=== PATIENT | female | born 2005 | race African-American/Black ===

== ENCOUNTER 2024-12-04 19:17 | Inpatient (IN) ==
--- NOTE | 2024-12-04 19:26 | ED Triage Note ---
Date of Service December 04, 2024 Provider in Triage Author: Wing Mcgee History of Present Illness This patient was briefly evaluated while in triage. An abbreviated physical exam was performed. This patient is a 19-year-old Female who presents to the ED for evaluation seen here earlier today for accidental Tylenol overdose-evaluated and discharged, no treatment chest pain started while she was here but getting worse now shortness of breath and abdominal pain Physical Exam GENERAL: NAD CARDIOVASCULAR: RRR RESPIRATORY: CTA ABDOMEN: BS x 4. Nontender to palpation. Initial orders for labs and / or imaging were placed and patient was placed in the waiting area until a bed is available. Please see further documentation for the full ED course.
[2024-12-04 19:50] LABS: Basophils # (auto) 0.02 K/uL (0.00-0.20); Basophils % (auto) 0.3 %; Hematocrit (blood only) 40.8 % (37.0-47.0); Hemoglobin 13.8 g/dl (12.0-16.0); Immature Granulocytes # (auto) 0.02 K/uL (0.01-0.20); Immature Granulocytes % (auto) 0.3 %; Lymphocytes # (auto) 0.62 K/uL (1.20-3.40); Lymphocytes % (auto) 10.4 %; Mean Corpuscular Hgb Conc 33.8 g/dL (32.0-36.0); Mean Corpuscular Volume 82.8 fL (80.0-100.0); Mean Platelet Volume 10.5 fL (9.4-12.4); Monocytes # (auto) 0.39 K/uL (0.11-0.59); Monocytes % (auto) 6.5 %; Neutrophils # (auto) 4.94 K/uL (1.40-6.50); Neutrophils % (auto) 82.5 %; Platelet Count 228 K/uL (130-400); RDW Coefficient of Variation 12.4 % (11.5-14.5); RDW Standard Deviation 37.5 fL (36.4-46.3); Red Blood Count 4.93 M/uL (4.20-5.40); White Blood Count 5.99 K/ul (4.8-10.8)
[2024-12-04 20:04] LABS: Alanine Aminotransferase 193 U/L (7-52); Albumin Globulin Ratio 1.6 (0.9-2); Albumin Level 4.5 gm/dl (3.4-5.0); Alkaline Phosphatase 67 U/L (34-104); Anion Gap 11 (3-11); Aspartate Aminotransferase 215 U/L (13-39); BUN Creatinine Ratio 13.9 (10-20); Bilirubin,Total 0.6 mg/dl (0.2-1.0); Blood Urea Nitrogen 11 mg/dl (6-23); Calcium 9.1 mg/dl (8.6-10.3); Carbon Dioxide 23 mmol/L (21-32); Chloride 102 mmol/L (98-107); Creatinine Clr Calc Pharmacy 99.1 ml/min; Globulin 2.9 gm/dl (2.5-4.0); Glucose 191 mg/dl (70-99(Fasting)); Lipase 48 U/L (11-82); Potassium 2.8 mmol/L (3.5-5.1); Sodium 136 mmol/L (136-145); Total Protein 7.4 gm/dl (6.0-8.3)
[2024-12-04 20:09] LABS: Pregnancy Test, Serum Negative (Negative)
[2024-12-04 20:11] LABS: Troponin I High Sensitivity < 2.3 pg/ml (0-14)
--- NOTE | 2024-12-04 20:47 | XRay Report ---
Exam(s): XR CXR 1 VIEW EXAM: XR Chest, 1 View CLINICAL HISTORY: Reason for exam: chest pain. TECHNIQUE: Frontal view of the chest. COMPARISON: No relevant prior studies available. FINDINGS: Lungs: Slightly prominent central interstitial markings suggest possible mild bronchitis. No focal consolidation is seen. Pleural space: Unremarkable. No pneumothorax. Heart: Unremarkable. No cardiomegaly. Mediastinum: Unremarkable. Normal mediastinal contour. Bones/joints: Unremarkable. No acute fracture. IMPRESSION: Slightly prominent central interstitial markings suggest possible mild bronchitis. No focal consolidation is seen. Electronically signed by: Chance Scott MD 12/04/24 20:46 PM
--- NOTE | 2024-12-04 21:06 | Emergency Department Note ---
Impression & Plan Acute cholecystitis, Unintentional Tylenol overdose, Chest pain, Abdominal pain ED Provider Note NAME: SATYA SMILEY AGE: 19 SEX: F : 2005 ARRIVES VIA: Walk-In INFORMANT: Patient ED PROVIDER(S): Parveen Martinez DO CHIEF COMPLAINT: Abdominal pain and chest pain HPI: Patient is a 19-year-old female who presents to the ER for abdominal pain and chest pain. She notes her symptoms initially started on Monday with dysuria, urgency, or frequency. She came in to be evaluated for the chills and she took 10 to 12 tablets of extra strength Tylenol. She was seen and evaluated and discussed with poison control. She notes that she took these around 11:00. She notes while she was here she started having belly pain and chest pain. She consequently came back because of that. No other exacerbating or remitting factors. She does have nausea but no vomiting. ADDITIONAL HISTORY OBTAINED: Per HPI Chronic Medical/Social Conditions Affecting Care: Per HPI PAST MEDICAL HISTORY:See Below PAST SURGICAL HISTORY:See Below FAMILY HISTORY:See Below SOCIAL HISTORY:See Below HOME MEDICATIONS:See Below ALLERGIES:See Below VITALS:See Below PHYSICAL EXAMINATION: GENERAL: Sitting up in bed, alert, well appearing, well nourished, no distress, non-toxic EYE EXAM: normal conjunctiva. OROPHARYNX: mucous membranes are moist NECK: supple, no nuchal rigidity, no adenopathy, non-tender CHEST: Reproducible anterior chest wall pain just right of sternum LUNGS: Clear to auscultation. Normal chest wall mechanics HEART: no murmurs, S1 normal and S2 normal ABDOMEN: abdomen soft, mild tenderness in the mid abdomen, normo-active bowel sounds, no masses, no rebound or guarding. UPPER EXTREMITIES: upper extremities are grossly normal. LOWER EXTREMITIES: No pitting edema. NEURO EXAM: Normal sensorium, cranial nerves II-XII grossly intact, normal speech, no gross weakness of arms, no gross weakness of legs. MEDICAL DECISION MAKING: Patient is a 19-year-old female who presents ER for the above-stated complaint. IV was established blood work was obtained. Labs showed no significant leukocytosis or anemia. INR unremarkable. D-dimer was negative. BMP with mild hypokalemia 2.8. This was repleted to the IV. LFTs were significant elevated at 200 and this has increased from the LFTs earlier today. Troponin negative. hCG negative. Acetaminophen at 50 and still elevated. Discussed with poison control and they agree with NAC. NAC protocol was started. CT abdomen pelvis was obtained and upon admission did show acute cholecystitis. Unclear at this point whether the transaminitis is secondary to cholecystitis versus Tylenol overdose. General surgery was consulted and patient was admitted to the hospital service. Did discuss with general surgery and they will see and evaluated and they recommended ultrasound and admission to the hospital service. IV Zosyn was ordered. Consults/Care Managements Discussions: Per MDM Triage Nursing notes reviewed. Limited review of prior medical records performed Vital Signs: reviewed and remarkable for no significant abnormalities Differential diagnosis: Cardiac ischemia, aortic dissection, pulmonary embolism, pneumothorax, pneumonia, pericarditis, myocarditis, esophageal rupture, GERD, cholecystitis, pancreatitis, musculoskeletal, as well as other pathologies. ER treatment provided: See below Diagnostics interpreted by me include EKG and cardiac monitoring as listed below: -Cardiac Monitoring: An order was placed for continuous cardiac monitoring. The monitor shows a rate of 60 with sinus rhythm. -ECG: none -Laboratory studies:Interpreted by me as stated above in MDM and shown below. Imaging studies: Xrays: As interpreted by me:none CTs show: CT abdomen pelvis per my preliminary interpretation shows no obvious bowel obstruction CT abdomen pelvis per radiology shows acute cholecystitis Procedures:none Critical Care: I have personally spent 35 minutes of critical care time in the direct management of this patient. This includes bedside care, interpretation of diagnostic studies, and testing, discussion with consultants, patient, and family members, and other required patient management activities. This 35 minutes is in excess of all separately billable procedures. Past Med/Surg History Problem List (Updated 12/05/24 @ 00:43 by Parveen Martinez DO) Acute cholecystitis (Acute) Abdominal pain (Acute) Chest pain (Acute) Unintentional Tylenol overdose (Acute) Social History Smoking Status: Never smoker Preferred Language: Kyrgyz Feels Safe at Home: Yes Allergies Allergies Allergy/AdvReac Type Severity Reaction Status Date / Time No Known Allergies Allergy Verified 12/04/24 14:49 Home Meds Home Medications Medication Instructions Recorded Confirmed No Known Home Medications 12/04/24 12/04/24 Results & Data (ED) Vital Signs Vital Signs - 24 hr 12/04/24 19:22 12/04/24 20:44 12/05/24 00:35 Temperature 36.3 C L Temperature Source Temporal Artery Scan Pulse Rate 75 71 62 Respiratory Rate 20 Respiratory Effort / Characteristics Non-Labored Spontaneous Respiratory Depth Normal Respiratory Pattern Regular Blood Pressure 121/80 Blood Pressure Mean 93 Blood Pressure Position Sitting Pulse Oximetry 99 Oxygen Delivery Method Room Air Sepsis Recent Fever Within 48 Hours No Sepsis New/Unexplained Change in Mental Status N/A Sepsis Action Taken by Nursing No Action Required Laboratory Data 12/04/24 19:39 12/04/24 19:39 Lab Results 12/04/24 Range/Units 19:39 WBC 5.99 (4.8-10.8) K/ul RBC 4.93 (4.20-5.40) M/uL Hgb 13.8 (12.0-16.0) g/dl Hct 40.8 (37.0-47.0) % MCV 82.8 (80.0-100.0) fL MCH 28.0 (25.0-34.0) pg MCHC 33.8 (32.0-36.0) g/dL RDW Std Deviation 37.5 (36.4-46.3) fL RDW Coeff of Debbie 12.4 (11.5-14.5) % Plt Count 228 (130-400) K/uL MPV 10.5 (9.4-12.4) fL Immature Gran % (Auto) 0.3 % Neut % (Auto) 82.5 % Lymph % (Auto) 10.4 % [place] % (Auto) 6.5 % Eos % (Auto) 0.0 % Baso % (Auto) 0.3 % Neut # (Auto) 4.94 (1.40-6.50) K/uL Lymph # (Auto) 0.62 L (1.20-3.40) K/uL [place] # (Auto) 0.39 (0.11-0.59) K/uL Eos # (Auto) 0.00 (0.00-0.50) K/uL Baso # (Auto) 0.02 (0.00-0.20) K/uL Immature Gran # (Auto) 0.02 (0.01-0.20) K/uL PT 12.0 (9.0-12.0) Seconds INR 1.1 (0.9-1.1) D-Dimer 400 (0-500) ug/L FEU Sodium 136 (136-145) mmol/L Potassium 2.8 L (3.5-5.1) mmol/L Chloride 102 (98-107) mmol/L Carbon Dioxide 23 (21-32) mmol/L Anion Gap 11 (3-11) BUN 11 (6-23) mg/dl Creatinine 0.79 (0.6-1.2) mg/dl Est Cr Clr Drug Dosing 99.1 ml/min eGFR 109.75 BUN/Creatinine Ratio 13.9 (10-20) Glucose 191 H (70-99(Fasting)) mg/dl Calcium 9.1 (8.6-10.3) mg/dl Total Bilirubin 0.6 (0.2-1.0) mg/dl AST 215 H (13-39) U/L ALT 193 H (7-52) U/L Alkaline Phosphatase 67 (34-104) U/L Troponin I High Sens < 2.3 (0-14) pg/ml Total Protein 7.4 (6.0-8.3) gm/dl Albumin 4.5 (3.4-5.0) gm/dl Globulin 2.9 (2.5-4.0) gm/dl Albumin/Globulin Ratio 1.6 (0.9-2) Lipase 48 (11-82) U/L HCG, Qual Negative (Negative) Acetaminophen 50 H (10-30) ug/ml Administered Medications Acetylcysteine 3,150 mg/ (Dextrose) 515.75 mls @ 125 mls/hr IV ONCE ONE; Protocol Stop: 12/05/24 02:15 Last Admin: 12/04/24 23:32 Dose: 125 mls/hr Documented By: AN Potassium Chloride (K Nick / Wtr) 10 meq in 100 mls @ 100 mls/hr IV Q1H NELLA Stop: 12/05/24 01:29 Last Admin: 12/04/24 23:32 Dose: 100 mls/hr Documented By: AN Discontinued Medications Acetylcysteine (Acetylcysteine Iv 21 Hr Regimen (>40kg)) 1 each IV NOW STA; Protocol Stop: 12/04/24 21:07 Last Admin: 12/04/24 21:52 Dose: Not Given Documented By: SNS Acetylcysteine 9,450 mg/ (Dextrose) 247.25 mls @ 200 mls/hr IV ONCE ONE; Protocol Stop: 12/04/24 22:20 Last Infusion: 12/04/24 23:56 Dose: Infused Documented By: Admin: 12/04/24 21:49 Dose: 200 mls/hr Documented By: SHIV Sodium Chloride (Nss) 1,000 mls @ 999 mls/hr IV .Q1H1M ONE Stop: 12/04/24 22:08 Last Infusion: 12/04/24 22:31 Dose: Infused Documented By: Admin: 12/04/24 21:28 Dose: 999 mls/hr Documented By: SHIV Ioversol (Optiray 320 100ml) 89 ml IV ONCE ONE Stop: 12/04/24 22:56 Last Admin: 12/04/24 22:55 Dose: 89 ml Documented By: ROBLES Ketorolac Tromethamine (Ketorolac Tromethamine 15 Mg/Ml Vial) 10 mg IV NOW ONE Stop: 12/04/24 21:00 Last Admin: 12/04/24 21:10 Dose: 10 mg Documented By: SHIV Miscellaneous (Stat Iv/Im) 1 each N/A NOW STA Stop: 12/04/24 21:07 Last Admin: 12/04/24 21:24 Dose: Not Given Documented By: SHIV Ondansetron HCl (Ondansetron Inj 2 Mg/Ml 2 Ml Vial) 4 mg IV NOW STA Stop: 12/04/24 21:09 Last Admin: 12/04/24 21:28 Dose: 4 mg Documented By: SHIV Imaging Data Radiologist's Impression: Chest X-Ray 12/04/24 19:26 Exam(s): XR CXR 1 VIEW EXAM: XR Chest, 1 View CLINICAL HISTORY: Reason for exam: chest pain. TECHNIQUE: Frontal view of the chest. COMPARISON: No relevant prior studies available. FINDINGS: Lungs: Slightly prominent central interstitial markings suggest possible mild bronchitis. No focal consolidation is seen. Pleural space: Unremarkable. No pneumothorax. Heart: Unremarkable. No cardiomegaly. Mediastinum: Unremarkable. Normal mediastinal contour. Bones/joints: Unremarkable. No acute fracture. IMPRESSION: Slightly prominent central interstitial markings suggest possible mild bronchitis. No focal consolidation is seen. Electronically signed by: Chance Scott MD 12/04/24 20:46 PM Abdomen/Pelvis CT 12/04/24 22:16 Exam(s): CT ABDOMEN + PELVIS With Contrast IV Amt: 89 cc opti 320 EXAM: CT Abdomen and Pelvis With Intravenous Contrast CLINICAL HISTORY: Reason for exam: abd pain. TECHNIQUE: Axial computed tomography images of the abdomen and pelvis with intravenous contrast. CTDI is 12.09 mGy and DLP is 573.08 mGy-cm. Automated exposure control was utilized for the study. A dose lowering technique was utilized adhering to the principles of ALARA. CONTRAST: Patient received 89 cc opti 320 of IV contrast COMPARISON: No relevant prior studies available. FINDINGS: Lung bases: Unremarkable. No mass. No consolidation. ABDOMEN: Liver: Unremarkable. No mass. Gallbladder and bile ducts: Periportal edema. Gallbladder wall thickening and pericholecystic fluid. . No ductal dilation. Pancreas: Unremarkable. No mass. No ductal dilation. Spleen: Unremarkable. No splenomegaly. Adrenals: Unremarkable. No mass. Kidneys and ureters: Unremarkable. No solid mass. No hydronephrosis. Both kidneys opacify with and excrete contrast in a normal symmetric fashion Stomach and bowel: Unremarkable. No obstruction. No mucosal thickening. PELVIS: Appendix: No findings to suggest acute appendicitis. Bladder: Unremarkable. No mass. Reproductive: 1.2 cm right ovarian cyst versus follicle. ABDOMEN and PELVIS: Intraperitoneal space: Trace free fluid within the dependent pelvis Bones/joints: No acute fracture. No dislocation. Soft tissues: Unremarkable. Vasculature: Unremarkable. No abdominal aortic aneurysm. Lymph nodes: Unremarkable. No enlarged lymph nodes. IMPRESSION: Findings consistent with acute cholecystitis. Clinical correlation recommended. Electronically signed by: Parveen Nelson MD 12/05/24 00:25 AM Discharge Plan Visit Data Chief Complaint: Chest Pain Stated Complaint: CHEST PAIN, ABD PAIN, SOB ED Provider: Parveen Martinez Discharge Problem: Acute cholecystitis, Unintentional Tylenol overdose, Chest pain, Abdominal pain Forms Stand Alone Forms: [employer] Prescriptions Prescriptions: No Action No Known Home Medications Referrals Referrals: [facility] [Primary Care Provider] - Discharge Problem: Unintentional Tylenol overdose Qualifiers: Encounter type: initial encounter Qualified Code(s): T39.1X1A - Poisoning by 4- Aminophenol derivatives, accidental (unintentional), initial encounter Chest pain Qualifiers: Chest pain type: unspecified Qualified Code(s): R07.9 - Chest pain, unspecified Abdominal pain Qualifiers: Abdominal location: unspecified location Qualified Code(s): R10.9 - Unspecified abdominal pain
[2024-12-04] MEDS: KETOROLAC TROMETHAMINE 15 MG/ML VIAL IV ONE (21:10)
[2024-12-04] MEDS: STAT IV/IM STA (21:24)
[2024-12-04] MEDS: ONDANSETRON INJ 2 MG/ML 2 ML VIAL IV STA (21:28)
[2024-12-04] MEDS: SODIUM CHLORIDE 0.9% 1,000 ML IV ONE (21:28)
[2024-12-04 21:46] LABS: INR 1.1 (0.9-1.1)
[2024-12-04] MEDS: AcetylCYSTEINE IV 21 HR REGIMEN (>40KG) IV STA (21:52)
[2024-12-04 22:13] LABS: D Dimer 400 ug/L FEU (0-500)
[2024-12-04] MEDS: OPTIRAY 320 100ml IV ONE (22:55)
[2024-12-04] MEDS: POTASSIUM CHLORIDE / WTR 10 MEQ/100 ML PLCT IV SCH (23:32)
--- NOTE | 2024-12-05 00:26 | CT Scan Report ---
Exam(s): CT ABDOMEN + PELVIS With Contrast IV Amt: 89 cc opti 320 EXAM: CT Abdomen and Pelvis With Intravenous Contrast CLINICAL HISTORY: Reason for exam: abd pain. TECHNIQUE: Axial computed tomography images of the abdomen and pelvis with intravenous contrast. CTDI is 12.09 mGy and DLP is 573.08 mGy-cm. Automated exposure control was utilized for the study. A dose lowering technique was utilized adhering to the principles of ALARA. CONTRAST: Patient received 89 cc opti 320 of IV contrast COMPARISON: No relevant prior studies available. FINDINGS: Lung bases: Unremarkable. No mass. No consolidation. ABDOMEN: Liver: Unremarkable. No mass. Gallbladder and bile ducts: Periportal edema. Gallbladder wall thickening and pericholecystic fluid. . No ductal dilation. Pancreas: Unremarkable. No mass. No ductal dilation. Spleen: Unremarkable. No splenomegaly. Adrenals: Unremarkable. No mass. Kidneys and ureters: Unremarkable. No solid mass. No hydronephrosis. Both kidneys opacify with and excrete contrast in a normal symmetric fashion Stomach and bowel: Unremarkable. No obstruction. No mucosal thickening. PELVIS: Appendix: No findings to suggest acute appendicitis. Bladder: Unremarkable. No mass. Reproductive: 1.2 cm right ovarian cyst versus follicle. ABDOMEN and PELVIS: Intraperitoneal space: Trace free fluid within the dependent pelvis Bones/joints: No acute fracture. No dislocation. Soft tissues: Unremarkable. Vasculature: Unremarkable. No abdominal aortic aneurysm. Lymph nodes: Unremarkable. No enlarged lymph nodes. IMPRESSION: Findings consistent with acute cholecystitis. Clinical correlation recommended. Electronically signed by: Parveen Nelson MD 12/05/24 00:25 AM
--- NOTE | 2024-12-05 00:42 | History & Physical Report ---
"Date of Service December 05, 2024 Assessment & Plan (1) Acute cholecystitis: (2) Unintentional Tylenol overdose: (3) Dyspepsia: (4) Acute bronchitis: (5) Asthma: (6) Costochondritis: Plan This is a 20-year-old female with past medical history of asthma who came to the ED due to abdominal pain and chest pain. Patient was ultimately admitted for management of unintentional Tylenol overdose and acute cholecystitis. Unintentional Tylenol overdose -Patient with very frequent use of Tylenol somewhere between 10 AM and 2 PM for management of her chest pain or abdominal pain -Denies having any thoughts of self-harm or suicidal ideation, and states that her overuse of the medication today was not on purpose -Tylenol level earlier today was 75 and repeat now was 50 -LFTs elevated at AST 215, ALT 193; PT/INR normal -ED spoke with poison control, recommended acetylcysteine as management -Repeat LFTs as part of a.m. labs to monitor trend, and then every 8 hours after that, as well as PT/INR and acetaminophen levels -Will avoid use of Tylenol during hospital admission, and instead use ibuprofen for management of possible fevers or pain Acute cholecystitis -Noted on CTAP done in he ED -Possible contributor to patient's abdominal pain and nausea -Unsure if patient's transaminitis is secondary to this versus due to Tylenol overdose versus both -Patient does not appear septic and VSS w/o fevers; CBC w/o leukocytosis -Will place on Zosyn and consult General Surgery. -Will order RUQ US to confirm if gallstones present -Monitor am labs Chest pain | Costochondritis -Patient with reproducible pain over her right-sided chest -EKG done in ED w/ NSR at 73 bpm and no ischemic changes; Troponin negative -Will manage with NSAIDs; could consider Voltaren gel or lidocaine patch if pain control suboptimal Bronchitis | history of asthma -Patient with hx of childhood asthma; has not needed to use inhaler regularly, however, whenever she gets URI she does end up needing an inhaler -CXR noting changes consistent with bronchitis but no PNA/consolidations -Possible contributor to chest discomfort? -Will order albuterol prn Dyspepsia/reflux -Pain with palpation of epigastric region -Will order pepcid prn UTI versus yeast infection versus HSV -Patient visited [facility] physician due to pain with urination, but patient clarifies pain is when urine touches her skin, not when urine is passing through the urethra Was evaluated and told she may have HSV since they saw lesions around vulva, as well as changes consistent with possible yeast infection -Possible her pain with urination is more related to possible HSV and yeast infection rather than true UTI, but will order U/A to fully r/o -Will order pyridium as well -Zosyn ordered as above for cholecystitis but can cover if UTI is real -Will hold off of Fluconazole 2/2 hypokalemia (being replaced in ED) and hold on acyclovir due to risk for GI side effects Dispo: Med/Tele Diet: NPO until Gen Surge evaluates Pain Control: ibuprofen VTE ppx: SCD and ambulation Code Status: FULL CODE History of Present Illness Chief Complaint: Abdominal pain, chest pain Primary Care Provider: [facility] Patient is a 19-year-old female with past medical history of asthma who came to the ED 2/2 concern of chest pain and abdominal pain. She was seen earlier today in the ED also for concern for tylenol overdose, however, after ED physician spoke with poison control who stated patient did not to be treated due to time frame and lab values at the time. As the day went on, patient began experiencing more and more chest pain and abdominal pain and therefore returned to ED due to concern this was related to tylenol overdose. Patient states she did not intent to overdose on tylenol, and that she was taking 2 tabs every 5 minutes until she reached 10-12 tabs due to chest pain and abdominal pain. Denies history of suicidal thoughts or thoughts of self harm. When asked to describe her chest armstrong, she states it is constant and could reach significant levels of intensity but cannot think of a particular trigger. Her abdominal pain is more marked on the epigastric and suprapubic region, but she states she can feel it more generalized at time. Associated sxs include nausea without vomiting, but no fevers/chills, weakness, bowel movement changes, or any other sxs. ED Course: Discussed with poison control and acetylcysteine started, 500 mL IVF given Labs/Imaging: CBC w/o leukocytosis and hgb of 13.8 and plt of 228. CMP w/ hypokalemia of 2.8 but no other significant electrolytes abnormalities and renal markers in good range. Bsg elevated at 191. LFTs elevated w/ AST of 215 (was 15 earlier today) and ALT of 193 (was 10 earlier today), alk phos normal. PT/INR normal. D-dimer normal. Lipase normal at 48. test negative. Acetaminophen level of 50 (was 75 earlier today). CXR showing bronchitis. CTAP showing possible acute cholecystitis. Medical History: [Reviewed] Medications: [Reviewed] Surgical History: [Reviewed] Family history: [Reviewed] Allergies: [Reviewed] Social History: [Reviewed] Code Status: FULL CODE Allergies Allergy/AdvReac Type Severity Reaction Status Date / Time No Known Allergies Allergy Verified 12/04/24 14:49 Home Medications Medication Instructions Recorded Confirmed Type No Known Home Medications 12/04/24 12/04/24 History Past Med/Surg History Problem List Cholecystitis Costochondritis Acute bronchitis Dyspepsia Acute cholecystitis (Acute) Abdominal pain (Acute) Chest pain (Acute) Unintentional Tylenol overdose (Acute) Medical History Asthma Social History Smoking Status: Never smoker Hx Alcohol Use: No Hx Substance Use: No Preferred Language: Turkmen Communication Ability: Effective Company Doctor Required: No Beliefs That Will Affect Care: None Current Living Situation: Alone Current Living Situation Comment: dorm Feels Safe at Home: Yes Assistive Devices: None Review of Systems Review of Systems: As per HPI Physical Exam Physical Exam: GENERAL: AAOx4, afebrile, non-toxic, NAD HEAD: AT, NC EYES: EOM intact, RODRIGO THROAT: normal to visual inspection CHEST: pain with palpation of right-sided chest wall, no pain w/ palpation of sternal region or left-sided chest wall; symmetric chest expansions with respirations CARDIO: RRR, no r/m/g PULMONARY: CTA b/l, normal respiratory effort, no respiratory distress GI: pain with palpation of epigastric region, nondistended EXTREMITIES: no swelling or calf tenderness in b/l LE Results & Data Results & Data Vital Signs (Past 12 Hours) Vital Signs Temp Pulse Resp BP Pulse Ox O2 Del Method 12/05/24 00:35 62 12/04/24 20:44 71 12/04/24 19:22 36.3 C L 75 20 121/80 99 Room Air Laboratory Results Laboratory Results WBC 5.99 K/ul (4.8-10.8) 12/04/24 19: RBC 4.93 M/uL (4.20-5.40) 12/04/24 19:39 Hgb 13.8 g/dl (12.0-16.0) 12/04/24 19: Hct 40.8 % (37.0-47.0) 12/04/24 19: MCV 82.8 fL (80.0-100.0) 12/04/24 19: MCH 28.0 pg (25.0-34.0) 12/04/24 19: MCHC 33.8 g/dL (32.0-36.0) 12/04/24 19: RDW Std Deviation 37.5 fL (36.4-46.3) 12/04/24 19: RDW Coeff of Debbie 12.4 % (11.5-14.5) 12/04/24 19: Plt Count 228 K/uL (130-400) 12/04/24 19: MPV 10.5 fL (9.4-12.4) 12/04/24 19: Immature Gran % (Auto) 0.3 % 12/04/24 19: Neut % (Auto) 82.5 % 12/04/24 19: Lymph % (Auto) 10.4 % 12/04/24 19: Vance % (Auto) 6.5 % 12/04/24 19: Eos % (Auto) 0.0 % 12/04/24 19: Baso % (Auto) 0.3 % 12/04/24 19:39 Neut # (Auto) 4.94 K/uL (1.40-6.50) 12/04/24 19: Lymph # (Auto) 0.62 K/uL (1.20-3.40) L 12/04/24 19: Vance # (Auto) 0.39 K/uL (0.11-0.59) 12/04/24 19: Eos # (Auto) 0.00 K/uL (0.00-0.50) 01/22/25 19:39 Baso # (Auto) 0.02 K/uL (0.00-0.20) 12/04/24 19:39 Immature Gran # (Auto) 0.02 K/uL (0.01-0.20) 12/04/24 19:39 PT 12.0 Seconds (9.0-12.0) 12/04/24 19:39 INR 1.1 (0.9-1.1) 12/04/24 19:39 D-Dimer 400 ug/L FEU (0-500) 12/04/24 19:39 Sodium 136 mmol/L (136-145) 12/04/24 19:39 Potassium 2.8 mmol/L (3.5-5.1) L 12/04/24 19:39 Chloride 102 mmol/L (98-107) 12/04/24 19:39 Carbon Dioxide 23 mmol/L (21-32) 12/04/24 19:39 Anion Gap 11 (3-11) 12/04/24 19:39 BUN 11 mg/dl (6-23) 12/04/24 19:39 Creatinine 0.79 mg/dl (0.6-1.2) 12/04/24 19:39 Est Cr Clr Drug Dosing 99.1 ml/min 12/04/24 19:39 eGFR 109.75 12/04/24 19:39 BUN/Creatinine Ratio 13.9 (10-20) 12/04/24 19:39 Glucose 191 mg/dl (70-99(Fasting)) H 12/04/24 19:39 Calcium 9.1 mg/dl (8.6-10.3) 12/04/24 19:39 Total Bilirubin 0.6 mg/dl (0.2-1.0) 12/04/24 19:39 AST 215 U/L (13-39) H 12/04/24 19:39 ALT 193 U/L (7-52) H 12/04/24 19:39 Alkaline Phosphatase 67 U/L (34-104) 12/04/24 19:39 Troponin I High Sens < 2.3 pg/ml (0-14) 12/04/24 19:39 Total Protein 7.4 gm/dl (6.0-8.3) 12/04/24 19:39 Albumin 4.5 gm/dl (3.4-5.0) 12/04/24 19:39 Globulin 2.9 gm/dl (2.5-4.0) 12/04/24 19:39 Albumin/Globulin Ratio 1.6 (0.9-2) 12/04/24 19:39 Lipase 48 U/L (11-82) 12/04/24 19:39 HCG, Qual Negative (Negative) 12/04/24 19:39 Acetaminophen 50 ug/ml (10-30) H 12/04/24 19:39 Impressions Chest X-Ray 12/04/24 19:26 Exam(s): XR CXR 1 VIEW EXAM: XR Chest, 1 View CLINICAL HISTORY: Reason for exam: chest pain. TECHNIQUE: Frontal view of the chest. COMPARISON: No relevant prior studies available. FINDINGS: Lungs: Slightly prominent central interstitial markings suggest possible mild bronchitis. No focal consolidation is seen. Pleural space: Unremarkable. No pneumothorax. Heart: Unremarkable. No cardiomegaly. Mediastinum: Unremarkable. Normal mediastinal contour. Bones/joints: Unremarkable. No acute fracture. IMPRESSION: Slightly prominent central interstitial markings suggest possible mild bronchitis. No focal consolidation is seen. Electronically signed by: Chance Scott MD 12/04/24 20:46 PM Abdomen/Pelvis CT 12/04/24 22:16 Exam(s): CT ABDOMEN + PELVIS With Contrast IV Amt: 89 cc opti 320 EXAM: CT Abdomen and Pelvis With Intravenous Contrast CLINICAL HISTORY: Reason for exam: abd pain. TECHNIQUE: Axial computed tomography images of the abdomen and pelvis with intravenous contrast. CTDI is 12.09 mGy and DLP is 573.08 mGy-cm. Automated exposure control was utilized for the study. A dose lowering technique was utilized adhering to the principles of ALARA. CONTRAST: Patient received 89 cc opti 320 of IV contrast COMPARISON: No relevant prior studies available. FINDINGS: Lung bases: Unremarkable. No mass. No consolidation. ABDOMEN: Liver: Unremarkable. No mass. Gallbladder and bile ducts: Periportal edema. Gallbladder wall thickening and pericholecystic fluid. . No ductal dilation. Pancreas: Unremarkable. No mass. No ductal dilation. Spleen: Unremarkable. No splenomegaly. Adrenals: Unremarkable. No mass. Kidneys and ureters: Unremarkable. No solid mass. No hydronephrosis. Both kidneys opacify with and excrete contrast in a normal symmetric fashion Stomach and bowel: Unremarkable. No obstruction. No mucosal thickening. PELVIS: Appendix: No findings to suggest acute appendicitis. Bladder: Unremarkable. No mass. Reproductive: 1.2 cm right ovarian cyst versus follicle. ABDOMEN and PELVIS: Intraperitoneal space: Trace free fluid within the dependent pelvis Bones/joints: No acute fracture. No dislocation. Soft tissues: Unremarkable. Vasculature: Unremarkable. No abdominal aortic aneurysm. Lymph nodes: Unremarkable. No enlarged lymph nodes. IMPRESSION: Findings consistent with acute cholecystitis. Clinical correlation recommended. Electronically signed by: Parveen Nelson MD 12/05/24 00:25 AM Supervising Physician Co-Signing Physician Notes Patient seen and examined, chart reviewed, case discussed with Dr. Mcclain and I agree with the assessment and plan as above. Patient with complaint of right sided chest pain - seen in the ER earlier today - reproducible on exam. Accidental overdose of Acetaminophen - estimated 10-12 tablets of extra strength Tylenol (possibly 5-6 grams in a single dose). Tylenol level=75 initially with normal LFTs. Patient returns to the ER this evening with ongoing chest discomfort and some abdominal discomfort. Has elevation of LFTs at this time but decreasing Tylenol level. CT scan read as acute cholecystitis On exam patient is anxious in appearance but non-toxic Skin - no rash HEENT - MMM, Neck supple Heart - +S1/S2, regular, bradycardic, no m/r/g Lungs - CTA anteriorly, no rales/rhonchi or wheezes Abd - soft, mildly tender in the epigastric region, no RUQ tenderness Ext - no edema Labs and images reviewed INR is 1 K=2.8 HQW=[id number] VJP=590 Assessment/Plan Accidental Tylenol Overdose - patient possibly took 5-6gm of Acetaminophen in a single ingestion (10-12 tabs of ES Tylenol, typically 500mg tabs). Concerning elevation of LFTs. INR is normal NAC has been initiated in the ER, discussion with Poison Control Center. -Continue NAC -Repeat labs - BMP, LFTs, Acetaminophen level and INR in AM Possible acute cholecystitis - noted on CT scan. Patient's pain pattern is not typical of acute cholecystitis. However, will order RUQUS to assess for presence of gall stones -Empiric Zosyn -General Surgery consultation appreciated -Will keep pateint NPO for possible surgical intervention Elevated blood sugar - 191 -Will check HgbA1C Hypokalemia - K=2.8. Given 20mEq in ER -Will order additional 60mEq -Repeat chemistry in AM REmainder as above Resident Activity Tracking Resident Involvement: Resident Care Provided Care Provided: Adult Hospital Medicine (2) Unintentional Tylenol overdose Encounter type: initial encounter Qualified Code(s): T39.1X1A - Poisoning by 4-Aminophenol derivatives, accidental (unintentional), initial encounter"
--- NOTE | 2024-12-05 01:23 | Surgery Consultation ---
<Statement entered by Nay Rajan DO - 12/05/24 10:25> I have reviewed this patient's chart as well as saw and examined her this am. No surgical intervention for gallbladder at this time. Today she denies ever having any symptoms of biliary colic. If she develops biliary colic after her hepatitis has been treated, she may follow up with me in the office to discuss cholecystectomy. I have educated her on what symptoms to look for after the hepatitis has been resolved. Surgery will sign off at this time. Please call back if other questions or concerns. Date of Consultation December 05, 2024 Assessment & Plan (1) Cholecystitis: I discussed with the treating emergency room physician the patient is being admitted on the hospitalist service. Surgical recommendations are as follows: The treating emergency room physician has discussed with poison control and they feel the patient will require N-acetylcysteine due to the amount of Tylenol she ingested and this has been initiated Would recommend trending the patient's LFTs and coagulation studies The patient is noted to have hypokalemia and this will be supplemented At the time of my exam the patient's abdominal exam was entirely benign and not consistent with acute cholecystitis, raising the question of whether the findings on abdominal CT scan or related to Tylenol toxicity We will check a gallbladder ultrasound for further delineation of the biliary system, in particular to see if acute cholecystitis or cholelithiasis is present The decision about whether or not the patient will require cholecystectomy will be based on gallbladder ultrasound results, the trending of her LFTs, and the status of her Tylenol ingestion Would recommend initiating antibiotics, the hospitalist and noted they will place patient on Zosyn Would recommend keeping the patient n.p.o. at the present time Would provide IV fluid for hydration Provide as needed analgesics and antiemetics Additional recommendations will be forthcoming based on the pending items listed above The above plan was discussed in detail with the patient and her mother who was present at bedside History of Present Illness Reason for Consultation: Cholecystitis History of Present Illness This is a 19-year-old female who presented to the emergency department on 12/04/2024 secondary to Tylenol overdose. The patient reported that she was having 2 to 3 days of genital pain that she believes is from a urinary tract infection or a yeast infection. She said that she took 10-12 500 mg extra strength Tylenol tablets. She says that she took these medications at approximately 10:30 AM on 12/04/2024. She was seen at [facility] and referred to the emergency department for further evaluation due to Tylenol overdose. During this visit the patient had a sodium of 136 and a potassium of 3.4. Her BUN and creatinine were not elevated. She does not have any elevation of her LFTs or lipase and a test was noted to be negative. She also had a CBC where he globin and hematocrit were normal. Her white blood cell count platelet count normal. She also had coagulation studies which were noted to be normal. She did have an acetaminophen level checked which was noted be 75. During this visit the treating emergency room physician did discussed with Poison Control Center and was decided that the patient did not require any treatment for this level of Tylenol ingestion and the patient was discharged home. The patient Rodney presented to the emergency department the evening of as she developed some chest pain as well as abdominal pain. The patient says that she has felt nauseated without vomiting. She felt feverish but did not check her temperature. She does note that the chest pain is in the substernal region and the abdominal pain is mostly in the epigastric region without radiation or modifying factors. I did asked patient if she has ever had any postprandial pain over the past several weeks to months which she has not. She also verified that she has not had any surgical procedures particularly no abdominal surgeries. Since her representation to the emergency department patient has had additional labs and imaging which independent reviewed. She did have a chest x-ray that showed no evidence of pneumonia. She did have a CT scan of the abdomen pelvis with the gallbladder was noted to have some periportal edema with some gallbladder wall thickening and some pericholecystic fluid with no ductal dilatation. Interpreting radiologist felt that this was consistent with acute cholecystitis. Labs include a CBC were white blood cell count, hemoglobin, hematocrit, platelet count were normal. Coagulation studies remain within no rmal limits and not elevated. Chemistry profile showed sodium and potassium are 136 and 2.8, and her BUN and creatinine were normal. The patient's total bilirubin and alkaline phosphatase were normal. She did have elevation of her AST and ALT at 215 and 193 respectively. Her lipase was not elevated and a test was negative. A Tylenol level was noted to be 50. At the time of my interview she was resting comfortably bed and she was no distress. Concerning past medical history the patient says that he is she has been diagnosed with low vitamin D levels Concerning past surgical history she denies any surgeries She says she does not have any allergies to medicines Concerning social history she does not smoke or vape but she does consume alcoholic beverages on weekends Concerning family history she did have an uncle who suffered from gallbladder disease Allergies Allergy/AdvReac Type Severity Reaction Status Date / Time No Known Allergies Allergy Verified 12/04/24 14:49 Home Medications Medication Instructions Recorded Confirmed Type No Known Home Medications 12/04/24 12/04/24 History Patient History Medical History Asthma Social History Smoking Status: Never smoker Preferred Language: Sami Feels Safe at Home: Yes Review of Systems Review of Systems: All systems reviewed & are unremarkable except as noted in HPI & below Physical Exam Constitutional: WD/WN, vitals as above Eyes: No scleral jaundice noted ENMT: Ears: no hearing impairment and no external ear abnormality No sublingual jaundice noted Neck: trachea midline Respiratory: normal respiratory effort; no respiratory distress and no labored breathing Cardiovascular: Rate/Rhythm: regular rate and regular rhythm Gastrointestinal (Abdomen): Abdomen is soft and nonrigid. It is nondistended. At the time of my exam there is no rebound tenderness or guarding and no pain with palpation, specifically no right upper quadrant pain Musculoskeletal: No calf tenderness Skin: no jaundice Neurologic: moves all extremities Psychiatric: Orientation: alert and oriented x 3 Affect: + anxious affect Results & Data Vital Signs (Past 12 Hours) Vital Signs Temp Pulse Resp BP Pulse Ox O2 Del Method 12/05/24 00:35 62 12/04/24 20:44 71 12/04/24 19:22 36.3 C L 75 20 121/80 99 Room Air PG Care Time/CCT Total # of Minutes Spent Total Time Spent with Patient: Total time spent is greater than 50% in coordination of care (as documented) at patient's floor/unit and/or counseling patient: Coding Level of Care Code 61685 INT INP/OBS CARE 3/75MIN Diagnoses Cholecystitis K81.9
[2024-12-05] MEDS: PIPERACILLIN/TAZOBACTAM 4.5 GM/100 ML BAG IV ONE (01:45)
[2024-12-05] MEDS ORDERED: POLYETHYLENE (MIRALAX) 17 GM PACK PO PRN (02:25)
--- NOTE | 2024-12-05 02:58 | Billing Data ---
Date of Service December 05, 2024 Coding Level of Care Code 98446 INT INP/OBS CARE
[2024-12-05 03:00] LABS: Amphetamines+Metham, Urine Neg (Neg); Barbiturates, Urine Neg (Neg); Benzodiazepine, Urine Neg (Neg); Cocaine, Urine Neg (Neg); Fentanyl, Urine Neg (Neg); MDMA (Ecstacy), Urine Neg (Neg); Marijuana, Urine Pos (Neg); Methadone, Urine Neg (Neg); Opiate, Urine Neg (Neg); Phencyclidine, Urine Neg (Neg)
[2024-12-05] MEDS: SODIUM CHLORIDE 0.9% 1,000 ML IV SCH (03:09)
[2024-12-05] MEDS: POTASSIUM CHLORIDE CRTAB 20 MEQ TABCR PO STA (04:02)
[2024-12-05] MEDS: SODIUM CHLORIDE 0.45% IV ONE ×2 (04:05→21:04)
[2024-12-05] MEDS: ACETYLCYSTEINE IV ONE ×2 (04:05→21:04)
--- NOTE | 2024-12-05 04:18 | Ultrasound Report ---
EXAM: US liver CLINICAL HISTORY: HX: PREV CT 12/04/24. RECENT TYLENOL OVERDOSE. CHEST PAIN. DENIES NAUSEA, VOMITING. TECHNIQUE: Ultrasound examination of the limited abdomen was performed. COMPARISON: PREV CT 12/04/24 Mentioned but not available. FINDINGS: The pancreas is seen within normal limits. The liver is seen mildly enlarged measuring 16.4 cm with heterogenous hypoechoic texture. The portal tracts are seen as prominent echogenic with hypoechoic areas around the portal tracts suggesting periportal fibrosis/edema. The gallbladder is distended with no definite stone seen within. Edematous gallbladder wall seen adjacent to the liver measuring up to 1.0 cm and 1.5 cm. Negative Akhtar sign. Normal gallbladder wall thickness measuring 1.5 mm in areas not adjacent to the liver. The common bile duct is not dilated measuring 2.3 mm. The right kidney is seen within normal limits with no hydronephrosis seen within. IMPRESSION: 1. Mildly enlarged liver with heterogenous hypoechoic texture, acute hepatitis could not be entirely ruled out. 2. The portal tracts are seen as prominent echogenic with hypoechoic areas around the portal tracts suggesting periportal fibrosis/edema. 3. Edematous gallbladder wall thickness likely reactive to liver disease. 4. Otherwise unremarkable study. 5. Clinical and lab correlation are advised. 6. CT abdomen may be advised if clinically indicated. Electronically signed by Lennie Oropeza 12-05-2024 04:17 AM
[2024-12-05 04:27] LABS: INR 1.5 (0.9-1.1); Prothrombin Time 15.9 Seconds (9.0-12.0)
[2024-12-05 04:39] LABS: Albumin Globulin Ratio 1.8 (0.9-2); BUN Creatinine Ratio 13.6 (10-20); Bilirubin,Total 0.9 mg/dl (0.2-1.0); Calcium 7.9 mg/dl (8.6-10.3); Creatinine Clr Calc Pharmacy 132.7 ml/min; Globulin 2.2 gm/dl (2.5-4.0); Potassium 3.6 mmol/L (3.5-5.1); Total Protein 6.2 gm/dl (6.0-8.3)
[2024-12-05 06:34] LABS: Appearance Urine Clear (Clear); Bacteria Urine Automated 1+ (None Seen); Bilirubin Urine Negative (Negative); Blood Urine Negative (Negative); Cast Urine Automated 0-2 /lpf (0-2); Color Urine Yellow; Epithelial Cell Urine Auto 0-2 /hpf (0-2); Glucose Urine UA Trace (Negative); Ketones Urine 2+ (Negative); Leukocyte Esterase Urine 2+ (Negative); Nitrite Urine Negative (Negative); Protein Urine Negative (Negative); RBC Urine Automated 0-2 /hpf (0-2); Specific Gravity Urine > 1.045 (1.000-1.030); Urobilinogen Urine Negative (Negative); WBC Urine Automated 21-50 /hpf (0-5)
[2024-12-05] MEDS: PIPERACILLIN/TAZOBACTAM 4.5 GM/100 ML BAG IV SCH (06:46)
[2024-12-05 07:35] LABS: Estimated Average Glucose 114 mg/dl; Hemoglobin A1C 5.6 % (4.5-5.6)
--- NOTE | 2024-12-05 08:09 | Hospitalist Progress Note ---
"Date of Service December 05, 2024 Assessment & Plan (1) Acute cholecystitis: (2) Unintentional Tylenol overdose: (3) Dyspepsia: (4) Acute bronchitis: (5) Asthma: (6) Costochondritis: Plan This is a 20-year-old female with past medical history of asthma who came to the ED due to abdominal pain and chest pain. Patient was ultimately admitted for management of unintentional Tylenol overdose and acute cholecystitis. Unintentional Tylenol overdose -Patient with very frequent use of Tylenol somewhere between 10 AM and 2 PM for management of her chest pain or abdominal pain -Denies having any thoughts of self-harm or suicidal ideation, and states that her overuse of the medication today was not on purpose -Tylenol level earlier today was 75 and repeat now was 50 -LFTs elevated at AST 215, ALT 193; PT/INR normal -ED spoke with poison control, recommended acetylcysteine as management -Repeat LFTs as part of a.m. labs to monitor trend, and then every 8 hours after that, as well as PT/INR and acetaminophen levels -Will avoid use of Tylenol during hospital admission, and instead use ibuprofen for management of possible fevers or pain Acute cholecystitis -Noted on CTAP done in he ED -Possible contributor to patient's abdominal pain and nausea -Unsure if patient's transaminitis is secondary to this versus due to Tylenol overdose versus both -Patient does not appear septic and VSS w/o fevers; CBC w/o leukocytosis -Will place on Zosyn and consult General Surgery. -Will order RUQ US to confirm if gallstones present -Monitor am labs Chest pain | Costochondritis -Patient with reproducible pain over her right-sided chest -EKG done in ED w/ NSR at 73 bpm and no ischemic changes; Troponin negative -Will manage with NSAIDs; could consider Voltaren gel or lidocaine patch if pain control suboptimal Bronchitis | history of asthma -Patient with hx of childhood asthma; has not needed to use inhaler regularly, however, whenever she gets URI she does end up needing an inhaler -CXR noting changes consistent with bronchitis but no PNA/consolidations -Possible contributor to chest discomfort? -Will order albuterol prn Dyspepsia/reflux -Pain with palpation of epigastric region -Will order pepcid prn UTI versus yeast infection versus HSV -Patient visited [facility] physician due to pain with urination, but patient clarifies pain is when urine touches her skin, not when urine is passing through the urethra Was evaluated and told she may have HSV since they saw lesions around vulva, as well as changes consistent with possible yeast infection -Possible her pain with urination is more related to possible HSV and yeast infection rather than true UTI, but will order U/A to fully r/o -Will order pyridium as well -Zosyn ordered as above for cholecystitis but can cover if UTI is real -Will hold off of Fluconazole 2/2 hypokalemia (being replaced in ED) and hold on acyclovir due to risk for GI side effects Dispo: Med/Tele Diet: NPO until Gen Surge evaluates Pain Control: ibuprofen VTE ppx: SCD and ambulation Code Status: FULL CODE Admission and Anticipated Discharge Date Admission Date: December 05, 2024 Yesi Cheney is a 19 yoF with a hx of childhood asthma, recent UTI and yeast infection diagnosis, and possible HSV who presented to the ER on 12/04 with chest and abd pain 2/2 accidental tylenol overdose in the setting of urinary discomfort. Monday (12/02): -dysuria, urinary urgency and frequency, subjective fevers, and first noticed multiple lesions around her vulva. Monday (12/03): -fevers worsened, couldn't eat or get out of bed. still had urinary sx. rosas nd also URI illness. Monday (12/04): -presented to [facility] 9am, was diagnosed with UTI, yeast infection, possible HSV and prescribed fluconazole, Macrobid, valacyclovir, and Pyridium - did not take any of these medications yet. -reported taking 10-12 tylenol pills at 10:30am due to urinary discomfort -presented to [facility] ER at 2pm with chest and abd pain with tylenol level 75, was dc and returned at 7pm with continued sx and repeat tylenol level 50. Today (, 12/05): denies chest pain, abd pain, SOB, PACKER. Results & Data Results & Data Vital Signs (Past 12 Hours) Vital Signs Pulse Pulse Resp BP Pulse Ox Pulse Ox O2 Del Method 12/05/24 07:27 77 12/05/24 06:54 60 16 100/62 99 Room Air 12/05/24 03:50 62 16 101/73 98 Room Air 12/05/24 02:44 100 12/05/24 02:01 57 L 20 115/74 99 Room Air 12/05/24 00:35 62 12/05/24 00:30 64 22 109/76 100 Room Air 12/05/24 00:00 59 L 18 118/83 100 Room Air 12/04/24 23:50 100 Room Air 12/04/24 23:50 57 L 20 109/75 100 Room Air 12/04/24 20:44 71 O2 Del Method 12/05/24 07:27 12/05/24 06:54 12/05/24 03:50 12/05/24 02:44 Room Air 12/05/24 02:01 12/05/24 00:35 12/05/24 00:30 12/05/24 00:00 12/04/24 23:50 12/04/24 23:50 12/04/24 20:44 (2) Unintentional Tylenol overdose Encounter type: initial encounter Qualified Code(s): T39.1X1A - Poisoning by 4-Aminophenol derivatives, accidental (unintentional), initial encounter"
--- NOTE | 2024-12-05 08:31 | Medical Student Progress Note ---
Date of Service December 05, 2024 Assessment & Plan (1) Unintentional Tylenol overdose: Encounter type: initial encounter Qualified Code(s): T39.1X1A - Poisoning by 4-Aminophenol derivatives, accidental (unintentional), initial e ncounter (2) Acute cholecystitis: (3) Chest pain: Chest pain type: unspecified Qualified Code(s): R07.9 - Chest pain, unspecified (4) Abdominal pain: Abdominal location: unspecified location Qualified Code(s): R10.9 - Unspecified abdominal pain (5) Dyspepsia: (6) Costochondritis: (7) Asthma: (8) UTI (urinary tract infection): (9) Yeast infection: (10) HSV (herpes simplex virus) infection: (11) Transaminitis: Plan #Unintentional Tylenol Toxicity: #Acute Hepatitis: -Initiated N-acetylcysteine protocol as per poison control rec - s/p 21 hour, 3 bag NAC regimen -Suspect secondary cause contributing to transaminitis as amount of Acetaminophen ingested equates to ~5-6 grams, only a small amount above daily limit. Repeat Tylenol level trending down into normal range (12) while LFTs and PT/INR continued to trend upward: AST 15 --> 215 --> 891 ALT 10 --> 193 --> 857 ALKP 59 --> 67 -->63 PLT 228 NH/INR 1.1 --> 1.5 -GI consulted, initially recommended transfer to tertiary care center with hepatology and transplant program - case discussed with [facility] hepatology - recommended continued supportive care and serial labs Recommended criteria for transfer: INR>2, Encephalopathy -Pt had recent URI, exposure to EBV, and probable diagnosis of HSV- viral hepatitis panel, HSV 1/2 PCR, EBV panel, and CMV Ab titers pending -repeat LFTs, PT/INR q6 hrs. #?acute cholecystitis -CT abd/pel suggesting acute cholecystitis -RUQ u/s suggesting abnormal gallbladder findings 2/2 liver damage -potentially contributing to presenting abd pain and transaminitis, however considering reassuring physical exam, normal alk phos, low suspicion for acute cholecystitis at this time. -Being followed by gen surg and GI, no surgical intervention at this time per surgery - continue to appreciate recs -diet ordered, continue empiric treatment with Zosyn for GI/ coverage #abd pain/dyspepsia #chest pain/costochondritis -reproducible, non radiating pain upper right chest wall, resolving -recent and active illness -low suspicion for cardiopulm origin, likely costochondritis -pepcid PRN for epigastric burning sensation #bronchitis/hx of asthma -pt denies chest pain, SOB, fatigue, or needing to use rescue inhaler -Albuterol prn for SOB/wheezing #UTI/yeast infection/possible HSV -(+) urinary sx and UA consistent with infectious process -being covered empirically with zosyn for potential acute cholecystitis, would cover for UTI as well -hold fluconazole and valacyclovir in the setting of transaminitis -Toradol for pain control Dispo:med/tele VTE ppx: low risk, ambulation diet: regular Code: full code Admission and Anticipated Discharge Date Admission Date: December 05, 2024 Supervising Attestation Attending attestation Pt seen and examined in concert with Dr. Jaimes, [facility] [place]. In agreement with the documented findings as noted in the resident documentation with any exceptions or additions as noted here. Patient resting in bed without acute complaint at time of evaluation. Partner and mother present in the room (history obtained following them stepping out). Patient reports some alcohol use the monday prior without significant hangover on Monday. Did have onset of subjective fever/chills for short term on Monday reported with short course, S/O with similar sx which have resolved. VS as noted. On examination, S1/S2 nl RRR no MCG. CTAB. Abd NT/ND BS+ve Hepatitis, unknown etiology - concerning for APAP overdose with NAC running, poison control aware. GI rec'd transfer to tertiary center w/ transplant (E.g. [facility]) who declined accept at present due to INR < 2, encourage trending INR/PT and metabolic panel. f/u hepatitis labs Suspected HSV - may be contributing to hepatitis. Agree w/ initiation of IV therapy and monitoring as above. Obtain [facility] records for ?swab of lesions Else see resident documentation as noted. Yesi Cheney is a 19-year-old female with past medical history of childhood asthma, recent UTI and yeast infection and recent possible HSV diagnosis who came to the ED with concern of chest pain and abdominal pain. Monday (12/02): -dysuria, urinary urgency and frequency, subjective fevers, and first noticed multiple lesions around her vulva. Monday (12/03): -fevers worsened, couldn't eat or get out of bed. still had urinary sx. boyfriend also URI illness. Monday (12/04): -presented to [facility] 9am, was diagnosed with UTI, yeast infection, possible HSV and prescribed fluconazole, Macrobid, valacyclovir, and Pyridium - did not start any of these medications yet. -reported taking 10-12 tylenol pills (5-6 grams) at 10:30am due to urinary/pelvic discomfort -presented to [facility] ER at 2pm with chest and abd pain, was dc after ER physician discussed with poison control who stated patient did not need to be treated due to timeframe and lab values at the time. Noni returned to the ED at 7pm with continued sx and was found to have rising LFTs and electrolyte abnormalities. Today (, 12/05): Patient denies chest pain, abd pain, SOB, PACKER. still significant pelvic/urinary discomfort. Reports mono exposure (partner's roommate) over winter break. UTD with all childhood vaccines. Last EtOH consumption 5 days ago, estimates that she had 2 drinks. Does not routinely consume EtOH. Review of Systems Review of Systems: as per HPI Physical Exam Physical Exam: GENERAL: AAOx4, afebrile, pleasant and cooperative HEAD: AT, NC EYES: EOM intact, RODRIGO THROAT: normal to visual inspection CHEST: pain with palpation of right-sided chest wall, no pain w/ palpation of sternal region or left-sided chest wall; symmetric chest expansions with respirations CARDIO: RRR, no r/m/g PULMONARY: CTA b/l, normal respiratory effort, no respiratory distress GI: mild pain with palpation of epigastric region, nondistended EXTREMITIES: no swelling or calf tenderness in b/l LE Constitutional: WD/WN, vitals as above ENMT: Ears: no hearing impairment and no external ear abnormality Neck: trachea midline Respiratory: normal respiratory effort; no respiratory distress and no labored breathing Cardiovascular: Rate/Rhythm: regular rate and regular rhythm Skin: no jaundice Neurologic: moves all extremities Psychiatric: Orientation: alert and oriented x 3 Affect: + anxious affect Results & Data Vital Signs (Past 12 Hours) Vital Signs Pulse Pulse Resp BP Pulse Ox Pulse Ox O2 Del Method 12/05/24 07:27 77 12/05/24 06:54 60 16 100/62 99 Room Air 12/05/24 03:50 62 16 101/73 98 Room Air 12/05/24 02:44 100 12/05/24 02:01 57 L 20 115/74 99 Room Air 12/05/24 00:35 62 12/05/24 00:30 64 22 109/76 100 Room Air 12/05/24 00:00 59 L 18 118/83 100 Room Air 12/04/24 23:50 100 Room Air 12/04/24 23:50 57 L 20 109/75 100 Room Air 12/04/24 20:44 71 O2 Del Method 12/05/24 07:27 12/05/24 06:54 12/05/24 03:50 12/05/24 02:44 Room Air 12/05/24 02:01 12/05/24 00:35 12/05/24 00:30 12/05/24 00:00 12/04/24 23:50 12/04/24 23:50 12/04/24 20:44 Laboratory Results Laboratory Results - last 24 hr 12/04/24 12/05/24 12/05/24 19:39 02:33 03:22 WBC 5.99 RBC 4.93 Hgb 13.8 Hct 40.8 MCV 82.8 MCH 28.0 MCHC 33.8 RDW Std Deviation 37.5 RDW Coeff of Debbie 12.4 Plt Count 228 MPV 10.5 Immature Gran % (Auto) 0.3 Neut % (Auto) 82.5 Lymph % (Auto) 10.4 [place] % (Auto) 6.5 Eos % (Auto) 0.0 Baso % (Auto) 0.3 Neut # (Auto) 4.94 Lymph # (Auto) 0.62 L [place] # (Auto) 0.39 Eos # (Auto) 0.00 Baso # (Auto) 0.02 Immature Gran # (Auto) 0.02 PT 12.0 15.9 H INR 1.1 1.5 H D-Dimer 400 Sodium 136 133 L Potassium 2.8 L 3.6 D Chloride 102 103 Carbon Dioxide 23 23 Anion Gap 11 7 BUN 11 8 Creatinine 0.79 0.59 L Est Cr Clr Drug Dosing 99.1 132.7 eGFR 109.75 132.23 BUN/Creatinine Ratio 13.9 13.6 Glucose 191 H 191 H Estimat Average Glucose 114 Hemoglobin A1c 5.6 Calcium 9.1 7.9 L Total Bilirubin 0.6 0.9 AST 215 H 891 H ALT 193 H 857 H Alkaline Phosphatase 67 63 Troponin I High Sens < 2.3 Total Protein 7.4 6.2 Albumin 4.5 4.0 Globulin 2.9 2.2 L Albumin/Globulin Ratio 1.6 1.8 Lipase 48 HCG, Qual Negative Urine Color Yellow Urine Appearance Clear Urine pH 7.0 Ur Specific [place] > 1.045 H Urine Protein Negative Urine Glucose (UA) Trace H Urine Ketones 2+ H Urine Blood Negative Urine Nitrite Negative Urine Bilirubin Negative Urine Urobilinogen Negative Ur Leukocyte Esterase 2+ H Urine WBC (Auto) 21-50 H Urine RBC (Auto) 0-2 U Hyaline Cast (Auto) 0-2 U Epithel Cells (Auto) 0-2 Urine Bacteria (Auto) 1+ H Urine Opiates Screen Neg Ur Methadone, Qual Neg Urine Fentanyl Screen Neg Acetaminophen 50 H 12 Urine Barbiturates Neg Ur Phencyclidine (PCP) Neg U Amphetamin/Meth Scrn Neg MDMA (Ecstasy) Screen Neg U Benzodiazepines Scrn Neg Ur Cocaine Metabolite Neg U Marijuana (THC) Screen Pos H U Marijuana THC Carboxy Pending Drug Screen Comment Pending Resident Activity Tracking Resident Involvement: Resident Care Provided Care Provided: Adult Hospital Medicine
[2024-12-05] MEDS ORDERED: FAMOTIDINE 20 MG TAB PO SCH (09:00)
[2024-12-05] MEDS: FAMOTIDINE 20MG IV PUSH 20 MG/5 ML SYR IV SCH (09:11)
[2024-12-05] MEDS: KETOROLAC TROMETHAMINE 15 MG/ML VIAL IV ONE (09:11)
--- NOTE | 2024-12-05 09:22 | Med Student Discharge Summary ---
Date of Service December 05, 2024 Admission HPI Per Admitting Provider ED Course: Discussed with poison control and acetylcysteine started, 500 mL IVF given Labs: -(12/04): CBC w/o leukocytosis and hgb of 13.8 and plt of 228. CMP w/ hypokalemia of 2.8 but no other significant electrolytes abnormalities and normal kidney function. Bsg elevated at 191. LFTs: AST increased from 15 to 215, ALT increased from 10 to 193. Alk phos normal. PT/INR normal. D-dimer normal. Lipase normal at 48. test negative. Acetaminophen level decreased from 75 to 50. negative troponin. UA: leuk est 2+, WBC 21-50, bacteria 1+ -(12/05): CBC w/o leukocytosis and hgb of 13.8 and plt of 228. CMP w/ normal K+, Ca2+ at 7.9, and Na+ at 133. Bsg elevated at 191. AST/ALT: 891/857. normal kidney function. Acetaminophen level 12. Imaging: -(12/04): CXR showing possible mild bronchitis. CT abd/pelv showing possible acute cholecystitis. -(12/05): liver u/s: 1. Mildly enlarged liver with heterogenous hypoechoic texture, acute hepatitis could not be entirely ruled out. 2. The portal tracts are seen as prominent echogenic with hypoechoic areas around the portal tracts suggesting periportal fibrosis/edema. 3. Edematous gallbladder wall thickness likely reactive to liver disease. Medical History: [Reviewed] Medications: [Reviewed] Surgical History: [Reviewed] Family history: [Reviewed] Allergies: [Reviewed] Social History: [Reviewed] Code Status: FULL CODE Admission Exam (Per Admitting) Constitutional WD/WN, vitals as above ENMT Ears: no hearing impairment and no external ear abnormality Neck trachea midline Respiratory normal respiratory effort; no respiratory distress and no labored breathing Cardiovascular Rate/Rhythm: regular rate and regular rhythm Gastrointestinal (Abdomen) normal bowel sounds, soft, nontender, no hepatosplenomegaly Skin no jaundice Neurologic moves all extremities Psychiatric Orientation: alert and oriented x 3 Affect: + anxious affect Discharge Exam Constitutional WD/WN, vitals as above ENMT Ears: no hearing impairment and no external ear abnormality Neck trachea midline Respiratory normal respiratory effort; no respiratory distress and no labored breathing Cardiovascular Rate/Rhythm: regular rate and regular rhythm Gastrointestinal (Abdomen) normal bowel sounds, soft, nontender, no hepatosplenomegaly Skin no jaundice Neurologic moves all extremities Psychiatric Orientation: alert and oriented x 3 Affect: + anxious affect Discharge Data Consultations 12/05/24 02:25 Consult General Surgery Routine 12/05/24 08:37 Consult Gastroenterology Stat Hospital Course (1) Unintentional Tylenol overdose: (2) Acute cholecystitis: (3) Chest pain: (4) Abdominal pain: (5) Dyspepsia: (6) Costochondritis: (7) Asthma: (8) UTI (urinary tract infection): (9) Yeast infection: (10) HSV (herpes simplex virus) infection: (11) Transaminitis: Plan #Unintentional tylenol overdose #transaminitis -Initiated N-acetylcysteine protocol as per poison control rec -repeat LFTs, PT/INR q8 hrs -likely secondary causes of transaminitis other than 10-12 tylenol pills. considering recent URI, exposure to EBV, and diagnosis of HSV, check HSV, EBV, hepatitis panel #acute cholecystitis -imaging suggests abnormal gallbladder findings are 2/2 liver damage -potentially contributing to presenting abd pain however considering reassuring physical exam, normal alk phos, low suspicion for acute cholecystitis at this time. evaluated by gen surg -remain NPO, continue empiric treatment with Zosyn #abd pain/dyspepsia #chest pain/costochondritis -reproducible, non radiating pain upper right chest wall, resolving -recent and active illness -low suspcision for cardiopulm origin, likely costochondritis -pepcid PRN #bronchitis/hx of asthma -pt denies chest pain, SOB, fatigue, or needing to use rescue inhaler -was having some SOB yesterday which she attributed to anxiety she was experienced related to her new diagnosis of HSV #UTI/yeast infection/possible HSV -(+) urinary sx and UA -being covered empirically with zosyn for potential acute cholecystitis which would cover for UTI as well Discharge Plan Discharge Items Reason For Visit: ABDOMINAL PAIN, CHEST PAIN Follow-up/Referrals: [facility] [Primary Care Provider] - Medications and DC Order Prescriptions: No Action No Known Home Medications Admission Data Admit Date/Time: 12/05/24 00:51 Attending Provider: Douglas Serrano Admit Provider: Shweta Mcclain Primary Care Provider: [facility] Other Providers: Nay Rajan; Tarun Ortega
--- NOTE | 2024-12-05 09:35 | Gastrointestinal Consultation ---
Date of Consultation December 05, 2024 Assessment & Plan (1) Cholecystitis: 19 year old female admitted for unintentional Tylenol overdose and ? acute cholecystitis. GI was asked to evaluate for raising LFTs and INR this AM. Complex case. LFTs continue to rise and now w/ INR elevation concerning for live r impairment. Recommend transfer to a tertiary center w/ hepatology/transplant services. Agree w/ NAC. No Tylenol. The etiology of the LFTs elevation is unclear - may be related to Tylenol ingestion, acute HSV infection vs cholecystis vs other. I spent a total of 45 minutes on the date of service in review of patient's record, and previously obtained information in person and appropriate medical visit, discussion and education of plan, with patient and/or caregiver, placing orders for tests/referral/procedures as medically necessary and documentation of pertinent clinical information in patient's medical records for their visit today. Supervising Physician Co-Signing Physician Notes Tylenol toxicity. Transaminases close 1999. INR currently 1.6. Did request transfer for caution in this 19-year-old female. Transfer denied unless INR above 2 or signs of acidosis or metabolic encephalopathy. We will use the INR as her trigger of it reaches to her but we will request transfer once more. Continue full dose of N-acetylcysteine. History of Present Illness Reason for Consultation: elevated LFTs, elevated INR Requesting Physician: Douglas Serrano MD Attending Physician: Douglas Serrano MD History of Present Illness 19 year old female w/ history of asthma admitted w/ abd pain, nausea/vomiting, HSV infection and tylenol overdose - GI was asked to evaluate on 12/05. Pt was seen and evaluated, chart reviewed. Family at bedside who aids in history. Suggests she typically takes 4 tylenol daily for menstrual cycle symptoms. on 12/04/24 she took between 10-12 500 mg tablets of tylenol for genital pain/discomfort. Reports rare ETOH use, suggests last drink was on Monday and estimates about 2 drinks at that time. She notes her abd armstrong, nausea have resolved. And she is feeling ok from a gastrointestinal standpoint. No fever, chills, CP, SOB. Tbili 0.4 --> 0.6 --> 0.9 AST 15 --> 215 --> 891 ALT 10 --> 193 --> 857 ALKP 59 --> 67 -->63 PLT 228 MN/INR 1.1 --> 1.5 ABD US 2024: . Mildly enlarged liver with heterogenous hypoechoic texture, acute hepatitis could not be entirely ruled out. The portal tracts are seen as prominent echogenic with hypoechoic areas around the portal tracts suggesting periportal fibrosis/edema. Edematous gallbladder wall thickness likely reactive to liver disease. Otherwise unremarkable study. CTAP 2024: Findings consistent with acute cholecystitis. Clinical correlation recommended. Allergies Allergy/AdvReac Type Severity Reaction Status Date / Time No Known Allergies Allergy Verified 12/04/24 14:49 Home Medications Medication Instructions Recorded Confirmed Type No Known Home Medications 12/04/24 12/04/24 History Patient History Medical History Asthma Social History Smoking Status: Never smoker Hx Alcohol Use: No Hx Substance Use: No Preferred Language: Sammarinese Communication Ability: Effective Towel Cabinet Repairer Required: No Beliefs That Will Affect Care: None Current Living Situation: Alone Current Living Situation Comment: dorm Feels Safe at Home: Yes Assistive Devices: None Review of Systems Review of Systems: All other findings negative except as noted in HPI. Physical Exam Constitutional: WD/WN, vitals as above Respiratory: normal respiratory effort, lungs clear to auscultation Cardiovascular: RRR, no murmur, no edema Gastrointestinal (Abdomen): Inspection/Auscultation: normal bowel sounds Percussion/Palpation: abdomen soft; abdomen nontender Skin: no rashes, warm and dry Results & Data Vital Signs (Past 12 Hours) Vital Signs Pulse Pulse Resp BP Pulse Ox Pulse Ox O2 Del Method 12/05/24 09:15 74 16 111/73 94 Room Air 12/05/24 07:27 77 12/05/24 06:54 60 16 100/62 99 Room Air 12/05/24 03:50 62 16 101/73 98 Room Air 12/05/24 02:44 100 12/05/24 02:01 57 L 20 115/74 99 Room Air 12/05/24 00:35 62 12/05/24 00:30 64 22 109/76 100 Room Air 12/05/24 00:00 59 L 18 118/83 100 Room Air 12/04/24 23:50 100 Room Air 12/04/24 23:50 57 L 20 109/75 100 Room Air O2 Del Method 12/05/24 09:15 12/05/24 07:27 12/05/24 06:54 12/05/24 03:50 12/05/24 02:44 Room Air 12/05/24 02:01 12/05/24 00:35 12/05/24 00:30 12/05/24 00:00 12/04/24 23:50 12/04/24 23:50 Laboratory Results 12/05/24 12/05/24 12/04/24 Range/Units 03:22 02:33 19:39 WBC 5.99 (4.8-10.8) K/ul RBC 4.93 (4.20-5.40) M/uL Hgb 13.8 (12.0-16.0) g/dl Hct 40.8 (37.0-47.0) % MCV 82.8 (80.0-100.0) fL MCH 28.0 (25.0-34.0) pg MCHC 33.8 (32.0-36.0) g/dL RDW Std Deviation 37.5 (36.4-46.3) fL RDW Coeff of Debbie 12.4 (11.5-14.5) % Plt Count 228 (130-400) K/uL MPV 10.5 (9.4-12.4) fL Immature Gran % (Auto) 0.3 % Neut % (Auto) 82.5 % Lymph % (Auto) 10.4 % [place] % (Auto) 6.5 % Eos % (Auto) 0.0 % Baso % (Auto) 0.3 % Neut # (Auto) 4.94 (1.40-6.50) K/uL Lymph # (Auto) 0.62 L (1.20-3.40) K/uL [place] # (Auto) 0.39 (0.11-0.59) K/uL Eos # (Auto) 0.00 (0.00-0.50) K/uL Baso # (Auto) 0.02 (0.00-0.20) K/uL Immature Gran # (Auto) 0.02 (0.01-0.20) K/uL PT 15.9 H 12.0 (9.0-12.0) Seconds INR 1.5 H 1.1 (0.9-1.1) D-Dimer 400 (0-500) ug/L FEU Sodium 133 L 136 (136-145) mmol/L Potassium 3.6 D 2.8 L (3.5-5.1) mmol/L Chloride 103 102 (98-107) mmol/L Carbon Dioxide 23 23 (21-32) mmol/L Anion Gap 7 11 (3-11) BUN 8 11 (6-23) mg/dl Creatinine 0.59 L 0.79 (0.6-1.2) mg/dl Est Cr Clr Drug Dosing 132.7 99.1 ml/min eGFR 132.23 109.75 BUN/Creatinine Ratio 13.6 13.9 (10-20) Glucose 191 H 191 H (70-99(Fasting)) mg/dl Estimat Average Glucose 114 mg/dl Hemoglobin A1c 5.6 (4.5-5.6) % Calcium 7.9 L 9.1 (8.6-10.3) mg/dl Total Bilirubin 0.9 0.6 (0.2-1.0) mg/dl AST 891 H 215 H (13-39) U/L ALT 857 H 193 H (7-52) U/L Alkaline Phosphatase 63 67 (34-104) U/L Troponin I High Sens < 2.3 (0-14) pg/ml Total Protein 6.2 7.4 (6.0-8.3) gm/dl Albumin 4.0 4.5 (3.4-5.0) gm/dl Globulin 2.2 L 2.9 (2.5-4.0) gm/dl Albumin/Globulin Ratio 1.8 1.6 (0.9-2) Lipase 48 (11-82) U/L HCG, Qual Negative (Negative) Urine Color Yellow Urine Appearance Clear (Clear) Urine pH 7.0 (4.5-7.5) Ur Specific [place] > 1.045 H (1.000-1.030) Urine Protein Negative (Negative) Urine Glucose (UA) Trace H (Negative) Urine Ketones 2+ H (Negative) Urine Blood Negative (Negative) Urine Nitrite Negative (Negative) Urine Bilirubin Negative (Negative) Urine Urobilinogen Negative (Negative) Ur Leukocyte Esterase 2+ H (Negative) Urine WBC (Auto) 21-50 H (0-5) /hpf Urine RBC (Auto) 0-2 (0-2) /hpf U Hyaline Cast (Auto) 0-2 (0-2) /lpf U Epithel Cells (Auto) 0-2 (0-2) /hpf Urine Bacteria (Auto) 1+ H (None Seen) Urine Opiates Screen Neg (Neg) Ur Methadone, Qual Neg (Neg) Urine Fentanyl Screen Neg (Neg) Acetaminophen 12 50 H (10-30) ug/ml Urine Barbiturates Neg (Neg) Ur Phencyclidine (PCP) Neg (Neg) U Amphetamin/Meth Scrn Neg (Neg) MDMA (Ecstasy) Screen Neg (Neg) U Benzodiazepines Scrn Neg (Neg) Ur Cocaine Metabolite Neg (Neg) U Marijuana (THC) Screen Pos H (Neg) U Marijuana THC Carboxy Pending Drug Screen Comment Pending PG Care Time/CCT Total # of Minutes Spent Total Time Spent with Patient: Total time spent is greater than 50% in coordination of care (as documented) at patient's floor/unit and/or counseling patient: Coding Level of Care Code 28796 IN/OBS CONSULT LVL 3,45M Diagnoses Cholecystitis K81.9
[2024-12-05 12:24] LABS: BUN Creatinine Ratio 12.9 (10-20); Calcium 8.5 mg/dl (8.6-10.3); Creatinine Clr Calc Pharmacy 126.3 ml/min; Potassium 3.8 mmol/L (3.5-5.1)
[2024-12-05 12:38] LABS: INR 1.6 (0.9-1.1); Prothrombin Time 16.3 Seconds (9.0-12.0)
[2024-12-05 12:40] LABS: Albumin Globulin Ratio 1.8 (0.9-2); Albumin Level 3.8 gm/dl (3.4-5.0); Globulin 2.1 gm/dl (2.5-4.0); Total Protein 5.9 gm/dl (6.0-8.3)
[2024-12-05 12:55] LABS: Hep B Surface Ag with confirm Negative (Negative)
[2024-12-05 13:00] LABS: Hep C Ab Rflx HepCQuant RNA Negative (Negative)
--- NOTE | 2024-12-05 13:37 | Electrocardiogram Report ---
Test Reason : Blood Pressure : */* mmHG Vent. Rate : 77 BPM Atrial Rate : 77 BPM P-R Int : 156 ms QRS Dur : 90 ms QT Int : 392 ms P-R-T Axes : 57 88 59 degrees QTcB Int : 443 ms Normal sinus rhythm with sinus arrhythmia Nonspecific T wave abnormality Abnormal ECG When compared with ECG of 04-Dec-2024 15:10, No significant change was found Confirmed by Douglas Hale ([id number]) on 12/05/2024 1:37:16 PM Referred By: REFERRED SELF Confirmed By: Douglas Hale
[2024-12-05] MEDS: PHENAZOPYRIDINE HCL 100 MG TAB PO PRN (16:47)
[2024-12-05] MEDS ORDERED: STAT IV/IM STA (18:04)
[2024-12-05 19:16] LABS: BUN Creatinine Ratio 9.9 (10-20); Calcium 7.6 mg/dl (8.6-10.3); Creatinine Clr Calc Pharmacy 110.3 ml/min
[2024-12-05 19:25] LABS: INR 1.6 (0.9-1.1); Prothrombin Time 16.7 Seconds (9.0-12.0)
[2024-12-05 19:26] LABS: Albumin Globulin Ratio 1.8 (0.9-2); Albumin Level 3.6 gm/dl (3.4-5.0); Bilirubin,Total 0.6 mg/dl (0.2-1.0); Total Protein 5.6 gm/dl (6.0-8.3)
[2024-12-05] MEDS ORDERED: AcetylCYSTEINE IV 21 HR REGIMEN (>40KG) IV SCH (20:30)
[2024-12-05] MEDS: ACYCLOVIR SOD IV SCH (20:31)
[2024-12-05] MEDS: DEXTROSE 5% IV SCH (20:31)
[2024-12-05] MEDS: MELATONIN 3 MG TAB PO PRN (21:04)
[2024-12-05] MEDS: PLASMA-LYTE A 1,000 ML IV SCH (21:09)
[2024-12-06] MEDS: IBUPROFEN 600 MG TAB PO PRN (00:36)
[2024-12-06 05:58] LABS: Basophils # (auto) 0.01 K/uL (0.00-0.20); Basophils % (auto) 0.2 %; Eosinophils # (auto) 0.07 K/uL (0.00-0.50); Eosinophils % (auto) 1.4 %; Hematocrit (blood only) 35.1 % (37.0-47.0); Hemoglobin 11.7 g/dl (12.0-16.0); Immature Granulocytes # (auto) 0.01 K/uL (0.01-0.20); Immature Granulocytes % (auto) 0.2 %; Lymphocytes # (auto) 0.87 K/uL (1.20-3.40); Mean Corpuscular Hgb Conc 33.3 g/dL (32.0-36.0); Mean Platelet Volume 11.5 fL (9.4-12.4); Monocytes % (auto) 5.8 %; Neutrophils # (auto) 3.87 K/uL (1.40-6.50); Neutrophils % (auto) 75.4 %; Platelet Count 201 K/uL (130-400); RDW Coefficient of Variation 12.6 % (11.5-14.5); RDW Standard Deviation 38.5 fL (36.4-46.3); Red Blood Count 4.18 M/uL (4.20-5.40); White Blood Count 5.13 K/ul (4.8-10.8)
[2024-12-06 06:14] LABS: BUN Creatinine Ratio 7.1 (10-20); Calcium 8.3 mg/dl (8.6-10.3); Creatinine Clr Calc Pharmacy 111.8 ml/min
[2024-12-06 06:19] LABS: INR 1.6 (0.9-1.1); Prothrombin Time 16.5 Seconds (9.0-12.0)
[2024-12-06 06:33] LABS: Albumin Globulin Ratio 1.8 (0.9-2); Albumin Level 3.5 gm/dl (3.4-5.0); Bilirubin,Total 0.7 mg/dl (0.2-1.0); Globulin 1.9 gm/dl (2.5-4.0); Total Protein 5.4 gm/dl (6.0-8.3)
--- NOTE | 2024-12-06 07:17 | Hospitalist Progress Note ---
Date of Service December 06, 2024 Assessment & Plan (1) Unintentional Tylenol overdose: (2) Acute cholecystitis: (3) Chest pain: (4) Abdominal pain: (5) Dyspepsia: (6) Costochondritis: (7) Asthma: (8) UTI (urinary tract infection): (9) Yeast infection: (10) HSV (herpes simplex virus) infection: (11) Transaminitis: Plan 19yo F with history of childhood asthma and recent diagnoses of UTI, yeast infection, and probable HSV infection who presented with chest pain and abd pain to ED due to accidental tylenol oversdose in setting of pelvic/urinary discomfort. NAC protocol initiated with normalization of tylenol level and upward trending transaminitis of unknown cause. #Unintentional Tylenol Toxicity: #Acute Hepatitis: -s/p 3 bag NAC regimen. poison control rec 16 more hrs of NAC protocol -Suspect secondary cause contributing to transaminitis as amount of Acetaminophen ingested equates to ~5-6 grams, only a small amount above daily limit. Repeat Tylenol level trending down into normal range (12) while LFTs and PT/INR continued to trend upward: -Outside lab revealed HSV1 (+), HSV2 (-). negative trich, gonorrhea, chlamydia. -Hep Bs antigen and Hep C antigen negative -viral hep panel, EBV panel, and CMV Ab titers pending -repeat LFTs, PT/INR q6 hrs, consider HIV screen -GI following -d/c acyclovir as this was the only change before LFTs started to trend upward again -transfer accepted at [facility] but no beds ready. waiting on recs from [facility] hepatology team. will discuss with family to see if they are agreeable to potentially another hospital system in [place] #Metabolic alkalosis -bicarb trending up 42, anion gap -9 -VBG ordered #UTI/yeast infection/possible HSV -(+) urinary sx and UA consistent with infectious process -hold fluconazole in the setting of transaminitis -Dilaudid for pain control #?acute cholecystitis -CT abd/pel suggesting acute cholecystitis -RUQ u/s suggesting abnormal gallbladder findings 2/2 liver damage -considering reassuring physical exam, normal alk phos, low suspicion for acute cholecystitis at this time. -followed by gen surg, no surgical intervention at this time per surgery -followed by GI, continue to appreciate recs -discountined zosyn and famoditine #abd pain/dyspepsia #chest pain/costochondritis -reproducible, non radiating pain upper right chest wall, resolving -recent and active illness -low suspicion for cardiopulm origin, likely costochondritis #bronchitis/hx of asthma -pt denies chest pain, SOB, fatigue, or needing to use rescue inhaler -Albuterol prn for SOB/wheezing Dispo:med/tele VTE ppx: low risk, ambulation diet: regular Code: full code Admission and Anticipated Discharge Date Admission Date: December 05, 2024 Supervising Physician Co-Signing Physician Notes Attending Physician Supervision Note: I independently interviewed and examined the patient and verified the cummins history and physical, reviewed labs and image studies and agree with findings and care plan noted above. No abdominal pain. pain in perineal rash is controlled. vitals noted nad heent nc at mmm breathing unlabored no accessory muscles good effort skin no rashes no pallor or icterus neuro no focal deficits. Abdomen soft, perineal rash - spread out vesicular lesions. Tylenol overdose Transaminitis - -NAC protocol per poison control. -Following labs. -[facility] Transplant center holding transfer unless INR >2.0. -Hepatitis profile neg. Other viral panel pending. Autoimmune labs pending. 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 Multiple communication with transfer center, patient and family regarding transfer throughout the day. Total time spent in care today - 60min Subjective Last night started on Acyclovir for suspected HSV infection. Today, patient not having any abd pain, n, v, f, or chills. continues having pelvic/vulvar discomfort Review of Systems Review of Systems: All systems reviewed & are unremarkable except as noted in Subjective Physical Exam Physical Exam: GENERAL: AO to person, place, time. Afebrile, pleasant and cooperative CHEST: symmetric chest expansions with respirations, no chest pain with palpation CARDIO: RRR, no r/m/g PULMONARY: CTA b/l, normal respiratory effort, no respiratory distress GI: mild pain with palpation of epigastric and RUQ regions, nondistended EXTREMITIES: no swelling or calf tenderness in b/l LE NEURO: no asteristix Results & Data Results & Data Vital Signs (Past 12 Hours) Vital Signs Temp Pulse Pulse Resp BP Pulse Ox O2 Del Method 01/24/25 03:45 37.1 C 76 16 100/67 96 Room Air 12/06/24 00:07 37.1 C 12/05/24 23:05 66 12/05/24 19:47 68 16 98/58 L 98 Room Air Laboratory Results Laboratory Results - last 24 hr 12/05/24 12/05/24 12/05/24 02:23 11:44 18:39 WBC RBC Hgb Hct MCV MCH MCHC RDW Std Deviation RDW Coeff of Debbie Plt Count MPV Immature Gran % (Auto) Neut % (Auto) Lymph % (Auto) [place] % (Auto) Eos % (Auto) Baso % (Auto) Neut # (Auto) Lymph # (Auto) [place] # (Auto) Eos # (Auto) Baso # (Auto) Immature Gran # (Auto) PT 16.3 H INR 1.6 H Sodium 137 Potassium 3.8 Chloride 108 H Carbon Dioxide 21 Anion Gap 8 BUN 8 Creatinine 0.62 Est Cr Clr Drug Dosing 126.3 eGFR 130.66 BUN/Creatinine Ratio 12.9 Glucose 75 Lactate 1.0 Calcium 8.5 L Total Bilirubin 1.0 AST 720 H ALT 874 H Alkaline Phosphatase 61 Ammonia Total Protein 5.9 L Albumin 3.8 Globulin 2.1 L Albumin/Globulin Ratio 1.8 C.trachomatis RNA Pending CMV Specimen Source CMV IgM Ab Pending CMV Qnt PCR IU/mL CMV Qnt PCR log IU/mL CMV IgG Ab/TORCH Pending EBV Capsid Ag IgG Ab Pending EBV Capsid Ag IgM Ab Pending EBV Nuclear Antigen Ab Pending EBV Antibody Interp Pending Hepatitis A IgM Ab Pending Hep Bs Antigen Negative Hep B Core IgM Ab Pending Hepatitis C Antibody Negative Herpes Virus Source Pending HSV I DNA PCR Pending HSV II DNA PCR Pending N.gonorrhoeae RNA Pending 12/05/24 12/05/24 12/05/24 18:45 18:46 20:24 WBC RBC Hgb Hct MCV MCH MCHC RDW Std Deviation RDW Coeff of Debbie Plt Count MPV Immature Gran % (Auto) Neut % (Auto) Lymph % (Auto) [place] % (Auto) Eos % (Auto) Baso % (Auto) Neut # (Auto) Lymph # (Auto) [place] # (Auto) Eos # (Auto) Baso # (Auto) Immature Gran # (Auto) PT 16.7 H INR 1.6 H Sodium 139 Potassium 4.0 Chloride 111 H Carbon Dioxide 22 Anion Gap 6 BUN 7 Creatinine 0.71 Est Cr Clr Drug Dosing 110.3 eGFR 124.75 BUN/Creatinine Ratio 9.9 L Glucose 92 Lactate 3.3 H* Calcium 7.6 L Total Bilirubin 0.6 AST 503 H ALT 798 H Alkaline Phosphatase 62 Ammonia 32.0 Total Protein 5.6 L Albumin 3.6 Globulin 2.0 L Albumin/Globulin Ratio 1.8 C.trachomatis RNA CMV Specimen Source Pending CMV IgM Ab CMV Qnt PCR IU/mL Pending CMV Qnt PCR log IU/mL Pending CMV IgG Ab/TORCH EBV Capsid Ag IgG Ab EBV Capsid Ag IgM Ab EBV Nuclear Antigen Ab EBV Antibody Interp Hepatitis A IgM Ab Hep Bs Antigen Hep B Core IgM Ab Hepatitis C Antibody Herpes Virus Source HSV I DNA PCR HSV II DNA PCR N.gonorrhoeae RNA 12/06/24 12/06/24 05:22 07:25 WBC 5.13 RBC 4.18 L Hgb 11.7 L Hct 35.1 L MCV 84.0 MCH 28.0 MCHC 33.3 RDW Std Deviation 38.5 RDW Coeff of Debbie 12.6 Plt Count 201 MPV 11.5 Immature Gran % (Auto) 0.2 Neut % (Auto) 75.4 Lymph % (Auto) 17.0 [place] % (Auto) 5.8 Eos % (Auto) 1.4 Baso % (Auto) 0.2 Neut # (Auto) 3.87 Lymph # (Auto) 0.87 L [place] # (Auto) 0.30 Eos # (Auto) 0.07 Baso # (Auto) 0.01 Immature Gran # (Auto) 0.01 PT 16.5 H INR 1.6 H Sodium 137 Potassium 4.0 Chloride 110 H Carbon Dioxide 29 Anion Gap -2 L BUN 5 L Creatinine 0.70 Est Cr Clr Drug Dosing 111.8 eGFR 126.90 BUN/Creatinine Ratio 7.1 L Glucose 103 H Lactate 0.9 Calcium 8.3 L Total Bilirubin 0.7 AST 2922 H ALT 2428 H Alkaline Phosphatase 55 Ammonia Total Protein 5.4 L Albumin 3.5 Globulin 1.9 L Albumin/Globulin Ratio 1.8 C.trachomatis RNA CMV Specimen Source CMV IgM Ab CMV Qnt PCR IU/mL CMV Qnt PCR log IU/mL CMV IgG Ab/TORCH EBV Capsid Ag IgG Ab EBV Capsid Ag IgM Ab EBV Nuclear Antigen Ab EBV Antibody Interp Hepatitis A IgM Ab Hep Bs Antigen Hep B Core IgM Ab Hepatitis C Antibody Herpes Virus Source HSV I DNA PCR HSV II DNA PCR N.gonorrhoeae RNA (1) Unintentional Tylenol overdose Encounter type: initial encounter Qualified Code(s): T39.1X1A - Poisoning by 4-Aminophenol derivatives, accidental (unintentional), initial encounter (3) Chest pain Chest pain type: unspecified Qualified Code(s): R07.9 - Chest pain, unspecified (4) Abdominal pain Abdominal location: unspecified location Qualified Code(s): R10.9 - Unspecified abdominal pain
--- NOTE | 2024-12-06 08:19 | Gastroenterology Progress Note ---
Date of Service December 06, 2024 Assessment & Plan (1) Transaminitis: Plan: Original presentation following overdose normal transaminases. Mother shows me lab test from November 22 which were also normal. Patient returns because of chest discomfort maybe 2 to 3 hours after being discharged after original presentation. Liver enzymes mildly elevated at that time. Patient then subsequently given N-acetylcysteine. Also getting acyclovir for genital herpes. Liver enzymes blip but appear to be coming down yesterday. INR at 1.51.6. Normal bilirubin. Initially elevated lactate this is currently normal no acidosis In addition to N-acetylcysteine and acyclovir she is gotten some piperacillin and famotidine Hepatitis screen hep B surface antigen negative. Most likely this patient was vaccinated for hepatitis B. Hep A and hep C pending. Unclear the cause of the blip in liver enzymes from yesterday. Rarely is N- acetylcysteine or acyclovir associated with increased liver enzymes. Possible delayed effect from her drug overdose. No acetaminophen during this admission. I would stop piperacillin famotidine at this time. Plan follow-up on hepatitis screens. We will check autoimmune markers. Gentle hepatitis workup. Recheck liver enzymes and INR at noon. Reestablish contact with hepatology. (2) HSV (herpes simplex virus) infection: (3) Unintentional Tylenol overdose: Admission and Anticipated Discharge Date Admission Date: December 05, 2024 Subjective Transaminitis, Tylenol overdose Review of Systems Review of Systems: Patient currently denying abdominal pain no confusion Physical Exam Physical Exam: Patient lying in bed alert Mother at the bedside Abdominal examination benign no right upper quadrant tenderness Results & Data Results & Data Vital Signs (Past 12 Hours) Vital Signs Temp Pulse Pulse Resp BP Pulse Ox O2 Del Method 12/06/24 08:14 36.8 C 71 18 98/62 L 99 Room Air 12/06/24 07:26 70 12/06/24 03:45 37.1 C 76 16 100/67 96 Room Air 12/06/24 00:07 37.1 C 12/05/24 23:05 66 Laboratory Results INR remains at about 1.6. Her transaminases have been decreasing nicely. [place] ayesha now they have increased back to 1999 for unclear reasons PG Care Time/CCT Total # of Minutes Spent Total Time Spent with Patient: Total time spent is greater than 50% in coordination of care (as documented) at patient's floor/unit and/or counseling patient: Coding Level of Care Code 64801 SUB INP/OBS CARE Diagnoses Transaminitis R74.01 HSV (herpes simplex virus) infection B00.9 Unintentional Tylenol overdose T39.1X1A Encounter type: initial encounter (3) Unintentional Tylenol overdose Encounter type: initial encounter Qualified Code(s): T39.1X1A - Poisoning by 4-Aminophenol derivatives, accidental (unintentional), initial encounter
[2024-12-06] MEDS ORDERED: STAT IV/IM STA (09:02)
[2024-12-06] MEDS ORDERED: AcetylCYSTEINE IV 21 HR REGIMEN (>40KG) IV STA (09:02)
[2024-12-06] MEDS: ALBUTEROL HFA 8 GM INHALER INH PRN (09:49)
--- NOTE | 2024-12-06 10:20 | Gastroenterology Progress Note ---
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 Attempted to transfer to [facility] who had recommended to continue NAC and continue care locally unless INR > 2. Her transaminases were improving intialyl w/ NAC, however, spiked again this AM. We called [facility] and discussed the case w/ LORNA MillerN, RN. He will diogenes solo w/ transplant attending and call GI back. We noted if we have not heard from them prior to her repeat noon labs we would reach back out. Follow additional serologies, infectious/autoimmune etc which were orderd. Trend LFTs and INR. Assess for any mental status changes. Hold pepcid. Hold Zosyn. Thank you for allowing us to participate in the care of this patient. Please call with any acute changes, questions or concerns. Please see addendum below with additional recommendation from my supervising physician. I spent a total of 45 minutes on the date of service in review of patient's record, and previously obtained information in person and appropriate medical visit, discussion and education of plan, with patient and/or caregiver, placing orders for tests/referral/procedures as medically necessary and documentation of pertinent clinical information in patient's medical records for their visit today. Admission and Anticipated Discharge Date Admission Date: December 05, 2024 Subjective Pt was seen and evaluated, chart reviewed. Attempted to transfer to [facility] - they had recommend to keep at [facility] unless INR > 2. She has ongoing genital pain. Otherwise denies abd pain. No nausea/vomiting. Tbili 0.4 --> 0.6 --> 0.9 --> 0.7 AST 15 --> 215 --> 891 -> 503 --> 2922 ALT 10 --> 193 --> 857 --> 798 --> 2428 ALKP 59 --> 67 -->63 --> 55 PLT 228 ID/INR 1.1 --> 1.5 --> 1.6 ABD US 2024: . Mildly enlarged liver with heterogenous hypoechoic texture, acute hepatitis could not be entirely ruled out. The portal tracts are seen as prominent echogenic with hypoechoic areas around the portal tracts suggesting periportal fibrosis/edema. Edematous gall bladder wall thickness likely reactive to liver disease. Otherwise unremarkable study. CTAP 2024: Findings consistent with acute cholecystitis. Clinical correlation recommended. Review of Systems Review of Systems: All other findings negative except as noted in HPI. Physical Exam Constitutional: WD/WN, vitals as above Respiratory: normal respiratory effort, lungs clear to auscultation Cardiovascular: RRR, no murmur, no edema Gastrointestinal (Abdomen): normal bowel sounds, soft, nontender, no hepatosplenomegaly Skin: no rashes, warm and dry Results & Data Results & Data Vital Signs (Past 12 Hours) Vital Signs Temp Pulse Pulse Resp BP Pulse Ox O2 Del Method 12/06/24 09:55 Room Air 12/06/24 09:50 73 15 99 Room Air 12/06/24 08:14 98.2 F 71 18 98/62 L 99 Room Air 12/06/24 07:26 70 12/06/24 03:45 98.8 F 76 16 100/67 96 Room Air 12/06/24 00:07 98.7 F 12/05/24 23:05 66 Laboratory Results 12/06/24 12/06/24 12/05/24 Range/Units 07:25 05:22 20:24 WBC 5.13 (4.8-10.8) K/ul RBC 4.18 L (4.20-5.40) M/uL Hgb 11.7 L (12.0-16.0) g/dl Hct 35.1 L (37.0-47.0) % MCV 84.0 (80.0-100.0) fL MCH 28.0 (25.0-34.0) pg MCHC 33.3 (32.0-36.0) g/dL RDW Std Deviation 38.5 (36.4-46.3) fL RDW Coeff of Debbie 12.6 (11.5-14.5) % Plt Count 201 (130-400) K/uL MPV 11.5 (9.4-12.4) fL Immature Gran % (Auto) 0.2 % Neut % (Auto) 75.4 % Lymph % (Auto) 17.0 % [place] % (Auto) 5.8 % Eos % (Auto) 1.4 % Baso % (Auto) 0.2 % Neut # (Auto) 3.87 (1.40-6.50) K/uL Lymph # (Auto) 0.87 L (1.20-3.40) K/uL [place] # (Auto) 0.30 (0.11-0.59) K/uL Eos # (Auto) 0.07 (0.00-0.50) K/uL Baso # (Auto) 0.01 (0.00-0.20) K/uL Immature Gran # (Auto) 0.01 (0.01-0.20) K/uL PT 16.5 H (9.0-12.0) Seconds INR 1.6 H (0.9-1.1) Sodium 137 (136-145) mmol/L Potassium 4.0 (3.5-5.1) mmol/L Chloride 110 H (98-107) mmol/L Carbon Dioxide 29 (21-32) mmol/L Anion Gap -2 L (3-11) BUN 5 L (6-23) mg/dl Creatinine 0.70 (0.6-1.2) mg/dl Est Cr Clr Drug Dosing 111.8 ml/min eGFR 126.90 BUN/Creatinine Ratio 7.1 L (10-20) Glucose 103 H (70-99(Fasting)) mg/dl Lactate 0.9 (0.4-2.0) mmol/L Calcium 8.3 L (8.6-10.3) mg/dl Total Bilirubin 0.7 (0.2-1.0) mg/dl AST 2922 H (13-39) U/L ALT 2428 H (7-52) U/L Alkaline Phosphatase 55 (34-104) U/L Ammonia 32.0 (18-72) umol/L Total Protein 5.4 L (6.0-8.3) gm/dl Albumin 3.5 (3.4-5.0) gm/dl Globulin 1.9 L (2.5-4.0) gm/dl Albumin/Globulin Ratio 1.8 (0.9-2) C.trachomatis RNA CMV Specimen Source CMV IgM Ab CMV Qnt PCR IU/mL CMV Qnt PCR log IU/mL CMV IgG Ab/TORCH EBV Capsid Ag IgG Ab EBV Capsid Ag IgM Ab EBV Nuclear Antigen Ab EBV Antibody Interp Hepatitis A IgM Ab Hep Bs Antigen (Negative) Hep B Core IgM Ab Hepatitis C Antibody (Negative) Herpes Virus Source HSV I DNA PCR HSV II DNA PCR N.gonorrhoeae RNA 12/05/24 12/05/24 12/05/24 Range/Units 18:46 18:45 18:39 WBC (4.8-10.8) K/ul RBC (4.20-5.40) M/uL Hgb (12.0-16.0) g/dl Hct (37.0-47.0) % MCV (80.0-100.0) fL MCH (25.0-34.0) pg MCHC (32.0-36.0) g/dL RDW Std Deviation (36.4-46.3) fL RDW Coeff of Debbie (11.5-14.5) % Plt Count (130-400) K/uL MPV (9.4-12.4) fL Immature Gran % (Auto) % Neut % (Auto) % Lymph % (Auto) % [place] % (Auto) % Eos % (Auto) % Baso % (Auto) % Neut # (Auto) (1.40-6.50) K/uL Lymph # (Auto) (1.20-3.40) K/uL [place] # (Auto) (0.11-0.59) K/uL Eos # (Auto) (0.00-0.50) K/uL Baso # (Auto) (0.00-0.20) K/uL Immature Gran # (Auto) (0.01-0.20) K/uL PT 16.7 H (9.0-12.0) Seconds INR 1.6 H (0.9-1.1) Sodium 139 (136-145) mmol/L Potassium 4.0 (3.5-5.1) mmol/L Chloride 111 H (98-107) mmol/L Carbon Dioxide 22 (21-32) mmol/L Anion Gap 6 (3-11) BUN 7 (6-23) mg/dl Creatinine 0.71 (0.6-1.2) mg/dl Est Cr Clr Drug Dosing 110.3 ml/min eGFR 124.75 BUN/Creatinine Ratio 9.9 L (10-20) Glucose 92 (70-99(Fasting)) mg/dl Lactate 3.3 H* (0.4-2.0) mmol/L Calcium 7.6 L (8.6-10.3) mg/dl Total Bilirubin 0.6 (0.2-1.0) mg/dl AST 503 H (13-39) U/L ALT 798 H (7-52) U/L Alkaline Phosphatase 62 (34-104) U/L Ammonia (18-72) umol/L Total Protein 5.6 L (6.0-8.3) gm/dl Albumin 3.6 (3.4-5.0) gm/dl Globulin 2.0 L (2.5-4.0) gm/dl Albumin/Globulin Ratio 1.8 (0.9-2) C.trachomatis RNA CMV Specimen Source Pending CMV IgM Ab Pending CMV Qnt PCR IU/mL Pending CMV Qnt PCR log IU/mL Pending CMV IgG Ab/TORCH Pending EBV Capsid Ag IgG Ab EBV Capsid Ag IgM Ab EBV Nuclear Antigen Ab EBV Antibody Interp Hepatitis A IgM Ab Hep Bs Antigen (Negative) Hep B Core IgM Ab Hepatitis C Antibody (Negative) Herpes Virus Source Pending HSV I DNA PCR Pending HSV II DNA PCR Pending N.gonorrhoeae RNA 12/05/24 12/05/24 Range/Units 11:44 02:23 WBC (4.8-10.8) K/ul RBC (4.20-5.40) M/uL Hgb (12.0-16.0) g/dl Hct (37.0-47.0) % MCV (80.0-100.0) fL MCH (25.0-34.0) pg MCHC (32.0-36.0) g/dL RDW Std Deviation (36.4-46.3) fL RDW Coeff of Debbie (11.5-14.5) % Plt Count (130-400) K/uL MPV (9.4-12.4) fL Immature Gran % (Auto) % Neut % (Auto) % Lymph % (Auto) % [place] % (Auto) % Eos % (Auto) % Baso % (Auto) % Neut # (Auto) (1.40-6.50) K/uL Lymph # (Auto) (1.20-3.40) K/uL [place] # (Auto) (0.11-0.59) K/uL Eos # (Auto) (0.00-0.50) K/uL Baso # (Auto) (0.00-0.20) K/uL Immature Gran # (Auto) (0.01-0.20) K/uL PT 16.3 H (9.0-12.0) Seconds INR 1.6 H (0.9-1.1) Sodium 137 (136-145) mmol/L Potassium 3.8 (3.5-5.1) mmol/L Chloride 108 H (98-107) mmol/L Carbon Dioxide 21 (21-32) mmol/L Anion Gap 8 (3-11) BUN 8 (6-23) mg/dl Creatinine 0.62 (0.6-1.2) mg/dl Est Cr Clr Drug Dosing 126.3 ml/min eGFR 130.66 BUN/Creatinine Ratio 12.9 (10-20) Glucose 75 (70-99(Fasting)) mg/dl Lactate 1.0 (0.4-2.0) mmol/L Calcium 8.5 L (8.6-10.3) mg/dl Total Bilirubin 1.0 (0.2-1.0) mg/dl AST 720 H (13-39) U/L ALT 874 H (7-52) U/L Alkaline Phosphatase 61 (34-104) U/L Ammonia (18-72) umol/L Total Protein 5.9 L (6.0-8.3) gm/dl Albumin 3.8 (3.4-5.0) gm/dl Globulin 2.1 L (2.5-4.0) gm/dl Albumin/Globulin Ratio 1.8 (0.9-2) C.trachomatis RNA Pending CMV Specimen Source CMV IgM Ab CMV Qnt PCR IU/mL CMV Qnt PCR log IU/mL CMV IgG Ab/TORCH EBV Capsid Ag IgG Ab Pending EBV Capsid Ag IgM Ab Pending EBV Nuclear Antigen Ab Pending EBV Antibody Interp Pending Hepatitis A IgM Ab Pending Hep Bs Antigen Negative (Negative) Hep B Core IgM Ab Pending Hepatitis C Antibody Negative (Negative) Herpes Virus Source HSV I DNA PCR HSV II DNA PCR N.gonorrhoeae RNA Pending PG Care Time/CCT Total # of Minutes Spent Total Time Spent with Patient: Total time spent is greater than 50% in coordination of care (as documented) at patient's floor/unit and/or counseling patient: Coding Level of Care Code 45825 SUB INP/OBS CARE 35MIN Diagnoses Transaminitis R74.01
[2024-12-06] MEDS: HYDROmorphone INJ 0.5 MG/0.5 ML SYR IV STA ×2 (10:56→21:36)
[2024-12-06 11:55] LABS: Albumin Globulin Ratio 1.7 (0.9-2); Albumin Level 4.1 gm/dl (3.4-5.0); Alkaline Phosphatase 77 U/L (34-104); Anion Gap -9 (3-11); Bilirubin,Total 0.9 mg/dl (0.2-1.0); Blood Urea Nitrogen 5 mg/dl (6-23); Calcium 8.8 mg/dl (8.6-10.3); Carbon Dioxide 42 mmol/L (21-32); Chloride 105 mmol/L (98-107); Creatinine Clr Calc Pharmacy 111.1 ml/min; Globulin 2.4 gm/dl (2.5-4.0); Glucose 86 mg/dl (70-99(Fasting)); Potassium 3.8 mmol/L (3.5-5.1); Sodium 138 mmol/L (136-145); Total Protein 6.5 gm/dl (6.0-8.3)
[2024-12-06 12:04] LABS: INR 1.6 (0.9-1.1); Prothrombin Time 16.4 Seconds (9.0-12.0)
[2024-12-06 12:17] LABS: Aspartate Aminotransferase 8831 U/L (13-39)
[2024-12-06] MEDS: ONDANSETRON INJ 2 MG/ML 2 ML VIAL IV PRN (12:43)
[2024-12-06 13:26] LABS: Alanine Aminotransferase > 2500 U/L (7-52)
[2024-12-06] MEDS: SODIUM CHLORIDE 0.45% IV ONE (13:49)
[2024-12-06] MEDS: ACETYLCYSTEINE IV ONE (13:49)
[2024-12-06 17:03] LABS: INR 1.5 (0.9-1.1); Prothrombin Time 16.1 Seconds (9.0-12.0)
[2024-12-06 17:18] LABS: Alanine Aminotransferase > 2500 U/L (7-52)
[2024-12-06 17:20] LABS: Anion Gap -10 (3-11); BUN Creatinine Ratio 6.5 (10-20); Blood Urea Nitrogen 4 mg/dl (6-23); Calcium 8.3 mg/dl (8.6-10.3); Carbon Dioxide 41 mmol/L (21-32); Chloride 105 mmol/L (98-107); Creatinine Clr Calc Pharmacy 127.2 ml/min; Glucose 120 mg/dl (70-99(Fasting)); Potassium 3.8 mmol/L (3.5-5.1); Sodium 136 mmol/L (136-145)
[2024-12-06 17:21] LABS: Albumin Globulin Ratio 1.6 (0.9-2); Albumin Level 3.6 gm/dl (3.4-5.0); Alkaline Phosphatase 70 U/L (34-104); Aspartate Aminotransferase 7975 U/L (13-39); Bilirubin,Total 0.6 mg/dl (0.2-1.0); Globulin 2.2 gm/dl (2.5-4.0); Total Protein 5.8 gm/dl (6.0-8.3)
[2024-12-06 23:28] LABS: Anion Gap -4 (3-11); BUN Creatinine Ratio 4.8 (10-20); Blood Urea Nitrogen 3 mg/dl (6-23); Calcium 8.3 mg/dl (8.6-10.3); Carbon Dioxide 37 mmol/L (21-32); Chloride 103 mmol/L (98-107); Creatinine Clr Calc Pharmacy 125.2 ml/min; Glucose 106 mg/dl (70-99(Fasting)); Potassium 3.7 mmol/L (3.5-5.1); Sodium 136 mmol/L (136-145)
[2024-12-06 23:38] LABS: Albumin Globulin Ratio 1.6 (0.9-2); Albumin Level 3.5 gm/dl (3.4-5.0); Alkaline Phosphatase 73 U/L (34-104); Bilirubin,Total 0.6 mg/dl (0.2-1.0); Globulin 2.2 gm/dl (2.5-4.0); Phosphorus 2.5 mg/dl (2.5-4.9); Total Protein 5.7 gm/dl (6.0-8.3)
[2024-12-06 23:42] LABS: INR 1.4 (0.9-1.1); Prothrombin Time 14.8 Seconds (9.0-12.0)
[2024-12-07] LABS: Aspartate Aminotransferase 5519 U/L (13-39)
[2024-12-07 00:03] LABS: Alanine Aminotransferase > 2500 U/L (7-52)
[2024-12-07 02:41] LABS: Anion Gap -3 (3-11); BUN Creatinine Ratio 5.2 (10-20); Blood Urea Nitrogen 3 mg/dl (6-23); Calcium 8.1 mg/dl (8.6-10.3); Carbon Dioxide 34 mmol/L (21-32); Chloride 104 mmol/L (98-107); Glucose 102 mg/dl (70-99(Fasting)); Potassium 3.7 mmol/L (3.5-5.1); Sodium 135 mmol/L (136-145)
[2024-12-07 03:01] LABS: Alanine Aminotransferase > 2500 U/L (7-52); Albumin Globulin Ratio 1.8 (0.9-2); Albumin Level 3.5 gm/dl (3.4-5.0); Alkaline Phosphatase 78 U/L (34-104); Aspartate Aminotransferase 4313 U/L (13-39); Bilirubin,Total 0.6 mg/dl (0.2-1.0); Total Protein 5.5 gm/dl (6.0-8.3)
[2024-12-07] MEDS: HYDROmorphone INJ 0.5 MG/0.5 ML SYR IV STA ×2 (04:13→15:02)
[2024-12-07 06:16] LABS: Mean Corpuscular Hemoglobin 27.6 pg (25.0-34.0); Mean Corpuscular Hgb Conc 33.3 g/dL (32.0-36.0); Mean Corpuscular Volume 82.8 fL (80.0-100.0); Mean Platelet Volume 11.8 fL (9.4-12.4); Platelet Count 193 K/uL (130-400); RDW Coefficient of Variation 12.5 % (11.5-14.5); RDW Standard Deviation 38.3 fL (36.4-46.3); Red Blood Count 4.35 M/uL (4.20-5.40); White Blood Count 2.96 K/ul (4.8-10.8)
[2024-12-07 06:20] LABS: Anion Gap 0 (3-11); BUN Creatinine Ratio 5.2 (10-20); Blood Urea Nitrogen 3 mg/dl (6-23); Calcium 8.6 mg/dl (8.6-10.3); Carbon Dioxide 33 mmol/L (21-32); Chloride 103 mmol/L (98-107); Creatinine Clr Calc Pharmacy 137.9 ml/min; Glucose 86 mg/dl (70-99(Fasting)); Potassium 3.7 mmol/L (3.5-5.1); Sodium 136 mmol/L (136-145)
[2024-12-07 06:31] LABS: INR 1.3 (0.9-1.1); Prothrombin Time 13.8 Seconds (9.0-12.0)
[2024-12-07 06:40] LABS: Albumin Globulin Ratio 1.6 (0.9-2); Albumin Level 3.5 gm/dl (3.4-5.0); Alkaline Phosphatase 87 U/L (34-104); Aspartate Aminotransferase 3303 U/L (13-39); Bilirubin,Total 0.7 mg/dl (0.2-1.0); Globulin 2.2 gm/dl (2.5-4.0); Phosphorus 3.1 mg/dl (2.5-4.9); Total Protein 5.7 gm/dl (6.0-8.3)
[2024-12-07 06:41] LABS: Alanine Aminotransferase > 2500 U/L (7-52)
--- NOTE | 2024-12-07 06:56 | Hospitalist Progress Note ---
Date of Service December 07, 2024 Assessment & Plan (1) Unintentional Tylenol overdose: (2) Acute cholecystitis: (3) Chest pain: (4) Abdominal pain: (5) Dyspepsia: (6) Costochondritis: (7) Asthma: (8) UTI (urinary tract infection): (9) Yeast infection: (10) HSV (herpes simplex virus) infection: (11) Transaminitis: Plan 19yo F with history of childhood asthma and recent diagnoses of UTI, yeast infection, and probable HSV infection who presented with chest pain and abd pain to ED due to accidental tylenol oversdose in setting of pelvic/urinary discomfort. NAC protocol initiated with normalization of tylenol level and upward trending transaminitis of unknown cause. #Unintentional Tylenol Toxicity: #Acute Hepatitis: -s/p 3 bag NAC regimen. -Suspect secondary cause contributing to transaminitis as amount of Acetaminophen ingested equates to ~5-6 grams, only a small amount above daily limit. Repeat Tylenol level trending down into normal range (12) while LFTs and PT/INR continued to trend upward: -Outside lab revealed HSV1 (+), HSV2 (-). negative trich, gonorrhea, chlamydia. -Hep Bs antigen and Hep C antigen negative -viral hep panel, EBV panel, and CMV Ab titers pending -Autoimmune antibodies pending. -LFTs, PT/INR, and phosphorus q6 hrs -GI following -d/c acyclovir as this was the only change before LFTs started to trend upward again upon admission. -transfer accepted at [facility] but no beds ready. Criteria for immediate transfer of INR over 2 or encephalopathic. -Transaminitis and INR downtrending, AST peaked at 8831. INR peaked at 1.6. Will hold off on expediting transfer at this time due to patient improving. -Elevated ferritin of 5179 with a high iron of 196. Most likely secondary to hepatitis. Serum copper pending. #Vaginal lesions -Outpatient labs showed positive HSV 1. -Most likely HSV infection. -MANAGER RISK MANAGEMENT consulted and state that recommended treatment will be Valtrex 500 mg twice daily. However can hold off on treatment until transaminitis has resolved. #Metabolic alkalosis -bicarb trended up to 42. -Resolved at this time and improving anion gap. #UTI/yeast infection/possible HSV -(+) urinary sx and UA consistent with infectious process -hold fluconazole in the setting of transaminitis -Dilaudid for pain control #?acute cholecystitis -CT abd/pel suggesting acute cholecystitis -RUQ u/s suggesting abnormal gallbladder findings 2/2 liver damage -considering reassuring physical exam, normal alk phos, low suspicion for acute cholecystitis at this time. -followed by gen surg, no surgical intervention at this time per surgery -followed by GI, continue to appreciate recs -discountined zosyn and famoditine #abd pain/dyspepsia #chest pain/costochondritis -reproducible, non radiating pain upper right chest wall, resolving -recent and active illness -low suspicion for cardiopulm origin, likely costochondritis #bronchitis/hx of asthma -pt denies chest pain, SOB, fatigue, or needing to use rescue inhaler -Albuterol prn for SOB/wheezing Dispo:med/tele VTE ppx: low risk, ambulation diet: regular Code: full code Admission and Anticipated Discharge Date Admission Date: December 05, 2024 Supervising Physician Co-Signing Physician Notes Attending Physician Supervision Note: I independently interviewed and examined the patient and verified the cummins history and physical, reviewed labs and image studies and agree with findings and care plan noted above. Pain in genital rash continues. vitals noted nad heent nc at mmm breathing unlabored no accessory muscles good effort skin no rashes no pallor or icterus neuro no focal deficits. Tylenol overdose - unintentional Transaminitis - -Finished NAC protocol per poison control. -LFT/INR trending down. Continue to follow. -Hepatitis profile neg. Other viral panel pending. HSV I from [facility] labs positive. Autoimmune labs pending. 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 -Avoiding oral antiviral due to LFT rise after acyclovir. -though topical acyclovir not effective for genital rash - will trial due to extent of pain. -topical steroids. Subjective Patient seen bedside this morning. She is currently resting. Mother also bedside states that she is doing slightly better but is still very fatigued and having vaginal pain. Review of Systems Review of Systems: All systems reviewed & are unremarkable except as noted in Subjective Physical Exam Constitutional: WD/WN, vitals as above Eyes: PERRL, conjunctivae normal, anicteric sclerae Respiratory: normal respiratory effort, lungs clear to auscultation Cardiovascular: RRR, no murmur, no edema Gastrointestinal (Abdomen): normal bowel sounds, soft, nontender, no hepatosplenomegaly Results & Data Results & Data Vital Signs (Past 12 Hours) Vital Signs Temp Pulse Pulse Resp BP Pulse Ox O2 Del Method 12/07/24 06:39 85 12/07/24 04:22 36.8 C 83 20 93/58 L 97 Room Air 12/06/24 23:25 36.7 C 90 20 100/64 93 Room Air 12/06/24 21:44 98 H 12/06/24 20:13 37.2 C 94 H 20 98/64 L 98 Room Air (1) Unintentional Tylenol overdose Encounter type: initial encounter Qualified Code(s): T39.1X1A - Poisoning by 4-Aminophenol derivatives, accidental (unintentional), initial encounter (3) Chest pain Chest pain type: unspecified Qualified Code(s): R07.9 - Chest pain, unspecified (4) Abdominal pain Abdominal location: unspecified location Qualified Code(s): R10.9 - Unspecified abdominal pain
[2024-12-07 07:13] LABS: Basophils # (auto) 0.02 K/uL (0.00-0.20); Basophils % (auto) 0.7 %; Eosinophils # (auto) 0.16 K/uL (0.00-0.50); Eosinophils % (auto) 5.4 %; Immature Granulocytes # (auto) 0.01 K/uL (0.01-0.20); Immature Granulocytes % (auto) 0.3 %; Lymphocytes # (auto) 1.16 K/uL (1.20-3.40); Lymphocytes % (auto) 39.2 %; Monocytes # (auto) 0.42 K/uL (0.11-0.59); Monocytes % (auto) 14.2 %; Neutrophils # (auto) 1.19 K/uL (1.40-6.50); Neutrophils % (auto) 40.2 %
--- NOTE | 2024-12-07 07:32 | OB/GYN Consultation ---
Date of Consultation December 07, 2024 Assessment & Plan (1) HSV (herpes simplex virus) infection: Patient has known history of HSV was consulted to assess and I agree this looks like HSV in general would recommend treatment with Valtrex 500 mg p.o. twice daily however if team has concerns about liver enzymes or other matters could hold this as it will resolve eventually however it will take more time to resolve without treatment. Clearly a very complicated case but I confirm the team's assessment that this is herpes simplex virus reviewed with the patient total time [id number] 35 minutes History of Present Illness Attending Physician: Dinah Ontiveros MD History of Present Illness Highly medically complicated patient admitted by medical service was consulted Monday morning for lesions on the vulva Patient states she is sexually active and has a known history of HSV 1 she has been treated inpatient by the hospital staff but there is apparently a rise in liver enzymes she states she has vulvar pain she has had this before and has been treated for HSV before Allergies Allergy/AdvReac Type Severity Reaction Status Date / Time No Known Allergies Allergy Verified 12/04/24 14:49 Home Medications Medication Instructions Recorded Confirmed Type No Known Home Medications 12/04/24 12/04/24 History Patient History Medical History Asthma Social History Smoking Status: Never smoker Hx Alcohol Use: No Hx Substance Use: No Preferred Language: Uzbek Communication Ability: Effective Right Of Way Buyer Required: No Beliefs That Will Affect Care: None Current Living Situation: Alone Current Living Situation Comment: dorm Feels Safe at Home: Yes Assistive Devices: None Physical Exam Genitourinary: Exam done with nurse Angélica PAREKH present external genitalia is consistent with multiple ulcerative lesions most notably on the left labia consistent with HSV internal exam is not performed at this time Results & Data Vital Signs (Past 12 Hours) Vital Signs Temp Pulse Pulse Resp BP Pulse Ox O2 Del Method 12/07/24 06:39 85 12/07/24 04:22 98.2 F 83 20 93/58 L 97 Room Air 12/06/24 23:25 98.1 F 90 20 100/64 93 Room Air 12/06/24 21:44 98 H 12/06/24 20:13 99.0 F 94 H 20 98/64 L 98 Room Air PG Care Time/CCT Total # of Minutes Spent Total Time Spent with Patient: Total time spent is greater than 50% in coordination of care (as documented) at patient's floor/unit and/or counseling patient: Coding Level of Care Code 73404 IN/OBS CONSULT LVL 2,35M Diagnoses HSV (herpes simplex virus) infection B00.9
--- NOTE | 2024-12-07 10:52 | Gastroenterology Progress Note ---
Date of Service December 07, 2024 Assessment & Plan (1) Transaminitis: Plan: Although still significantly elevated her LFT's are trending downwards. More importantly her INR is trending down as well. while not completely out of the lieberman I think she will recover without incident. Will continue to follow Admission and Anticipated Discharge Date Admission Date: December 05, 2024 Subjective Feeling well. Labs are improving. INR is improving as well Physical Exam Physical Exam: She looks well Results & Data Vital Signs (Past 12 Hours) Vital Signs Temp Pulse Pulse Pulse Resp BP BP 12/07/24 09:27 12/07/24 07:38 36.7 C 91 H 99/61 L 91/51 L 12/07/24 06:39 85 12/07/24 04:22 36.8 C 83 20 93/58 L 12/06/24 23:25 36.7 C 90 20 100/64 Pulse Ox O2 Del Method 12/07/24 09:27 Room Air 12/07/24 07:38 96 Room Air 12/07/24 06:39 12/07/24 04:22 97 Room Air 12/06/24 23:25 93 Room Air
[2024-12-07 11:23] LABS: Chlam trach RNA(Genit,Ureth,Ur Not Detected (NotDetected); GC(Neis gon)RNA(Genit,Ureth,Ur Not Detected (NotDetected)
[2024-12-07 12:37] LABS: Anion Gap 2 (3-11); BUN Creatinine Ratio 8.6 (10-20); Blood Urea Nitrogen 5 mg/dl (6-23); Carbon Dioxide 30 mmol/L (21-32); Chloride 103 mmol/L (98-107); Creatinine Clr Calc Pharmacy 137.9 ml/min; Glucose 89 mg/dl (70-99(Fasting)); Potassium 3.8 mmol/L (3.5-5.1); Sodium 135 mmol/L (136-145)
[2024-12-07 12:51] LABS: INR 1.3 (0.9-1.1); Prothrombin Time 13.5 Seconds (9.0-12.0)
[2024-12-07 13:19] LABS: Alanine Aminotransferase > 2500 U/L (7-52); Albumin Globulin Ratio 1.6 (0.9-2); Albumin Level 3.6 gm/dl (3.4-5.0); Alkaline Phosphatase 95 U/L (34-104); Aspartate Aminotransferase 2143 U/L (13-39); Bilirubin,Total 0.8 mg/dl (0.2-1.0); Globulin 2.2 gm/dl (2.5-4.0); Total Protein 5.8 gm/dl (6.0-8.3)
[2024-12-07 14:07] LABS: Hepatitis A Antibody IgM NON-REACTIVE (NON-REACTIVE); Hepatitis B Core Antibody IgM NON-REACTIVE (NON-REACTIVE)
[2024-12-07] MEDS: PLASMA-LYTE A 1,000 ML IV SCH (15:02)
[2024-12-07 15:03] LABS: Marijuana Quant, GCMS Urine 47 ng/mL (<5)
[2024-12-07 16:45] LABS: Anion Gap 3 (3-11); BUN Creatinine Ratio 7.9 (10-20); Blood Urea Nitrogen 5 mg/dl (6-23); Calcium 8.2 mg/dl (8.6-10.3); Carbon Dioxide 31 mmol/L (21-32); Chloride 103 mmol/L (98-107); Glucose 87 mg/dl (70-99(Fasting)); Sodium 137 mmol/L (136-145)
[2024-12-07 16:54] LABS: Albumin Globulin Ratio 1.6 (0.9-2); Albumin Level 3.4 gm/dl (3.4-5.0); Alkaline Phosphatase 94 U/L (34-104); Bilirubin,Total 0.7 mg/dl (0.2-1.0); Globulin 2.1 gm/dl (2.5-4.0); Phosphorus 3.4 mg/dl (2.5-4.9); Total Protein 5.5 gm/dl (6.0-8.3)
[2024-12-07 16:57] LABS: INR 1.2 (0.9-1.1); Prothrombin Time 12.9 Seconds (9.0-12.0)
[2024-12-07] MEDS: ACYCLOVIR 5% OINT 15 GM TUBE EXT SCH (17:07)
[2024-12-07 17:12] LABS: Aspartate Aminotransferase 1576 U/L (13-39)
[2024-12-07 17:13] LABS: Alanine Aminotransferase > 2500 U/L (7-52)
[2024-12-07] MEDS: TRIAMCINOLONE ACET 0.1% CR 80 GM TUBE EXT SCH (18:45)
[2024-12-07] MEDS ORDERED: TRIAMCINOLONE ACET 0.1% CR 80 GM TUBE EXT SCH (21:00)
[2024-12-07 22:59] LABS: Anion Gap 3 (3-11); BUN Creatinine Ratio 7.1 (10-20); Blood Urea Nitrogen 5 mg/dl (6-23); Calcium 8.6 mg/dl (8.6-10.3); Carbon Dioxide 31 mmol/L (21-32); Chloride 104 mmol/L (98-107); Creatinine Clr Calc Pharmacy 114.3 ml/min; Glucose 111 mg/dl (70-99(Fasting)); Potassium 3.7 mmol/L (3.5-5.1); Sodium 138 mmol/L (136-145)
[2024-12-07 23:09] LABS: INR 1.1 (0.9-1.1); Prothrombin Time 12.3 Seconds (9.0-12.0)
[2024-12-07 23:11] LABS: Albumin Globulin Ratio 1.7 (0.9-2); Albumin Level 3.6 gm/dl (3.4-5.0); Alkaline Phosphatase 99 U/L (34-104); Bilirubin,Total 0.6 mg/dl (0.2-1.0); Globulin 2.1 gm/dl (2.5-4.0); Phosphorus 2.6 mg/dl (2.5-4.9); Total Protein 5.7 gm/dl (6.0-8.3)
[2024-12-07 23:17] LABS: Alanine Aminotransferase > 2500 U/L (7-52); Aspartate Aminotransferase 1136 U/L (13-39)
--- NOTE | 2024-12-08 06:46 | Hospitalist Progress Note ---
Date of Service December 08, 2024 Assessment & Plan (1) Unintentional Tylenol overdose: (2) Acute cholecystitis: (3) Chest pain: (4) Abdominal pain: (5) Dyspepsia: (6) Costochondritis: (7) Asthma: (8) UTI (urinary tract infection): (9) Yeast infection: (10) HSV (herpes simplex virus) infection: (11) Transaminitis: Plan 19yo F with history of childhood asthma and recent diagnoses of UTI, yeast infection, and probable HSV infection who presented with chest pain and abd pain to ED due to accidental tylenol oversdose in setting of pelvic/urinary discomfort. NAC protocol initiated with normalization of tylenol level and upward trending transaminitis of unknown cause. #Unintentional Tylenol Toxicity: #Acute Hepatitis: -s/p 3 bag NAC regimen. -Suspect secondary cause contributing to transaminitis as amount of Acetaminophen ingested equates to ~5-6 grams, only a small amount above daily limit. Repeat Tylenol level trending down into normal range (12) while LFTs and PT/INR continued to trend upward: -Outside lab revealed HSV1 (+), HSV2 (-). negative trich, gonorrhea, chlamydia. -Hep Bs antigen and Hep C antigen negative -viral hep panel, EBV panel, and CMV Ab titers pending -Autoimmune antibodies pending. -LFTs, PT/INR, and phosphorus q6 hrs -GI following -d/c acyclovir as this was the only change before LFTs started to trend upward again upon admission. Though given significant painful vaginal lesions will restart acyclovir p.o. and monitor closely. -transfer accepted at [facility] but no beds ready. Criteria for immediate transfer of INR over 2 or encephalopathic. -Transaminitis and INR downtrending, AST peaked at 8831. INR peaked at 1.6. Will hold off on expediting transfer at this time due to patient improving. -Elevated ferritin of 5179 with a high iron of 196. Most likely secondary to hepatitis. Serum copper pending. -Did discuss with patient on 12/08 regarding Tylenol use, patient reiterates that she was taken Tylenol specifically for pain and had no thoughts of suicide thoughts or ideation. #Vaginal lesions -Outpatient labs showed positive HSV 1. -Most likely HSV infection. -EMBROIDERY DESIGNER consulted and state that recommended treatment will be Valtrex 500 mg twice daily. However it should hold off on Valtrex as this can cause an increase in her transaminitis. -Discussed again with EMBROIDERY DESIGNER and can start on p.o. acyclovir and monitor transaminitis closely. If able to tolerate will increase to 400 mg. Dosing will be 400 mg 3 times a day for 5 to 10 days. #Metabolic alkalosis -bicarb trended up to 42. -Resolved at this time and improving anion gap. #UTI/yeast infection/possible HSV -(+) urinary sx and UA consistent with infectious process -hold fluconazole in the setting of transaminitis -Dilaudid for pain control #?acute cholecystitis -CT abd/pel suggesting acute cholecystitis -RUQ u/s suggesting abnormal gallbladder findings 2/2 liver damage -considering reassuring physical exam, normal alk phos, low suspicion for acute cholecystitis at this time. -followed by gen surg, no surgical intervention at this time per surgery -followed by GI, continue to appreciate recs -discountined zosyn and famoditine #abd pain/dyspepsia #chest pain/costochondritis -reproducible, non radiating pain upper right chest wall, resolving -recent and active illness -low suspicion for cardiopulm origin, likely costochondritis #bronchitis/hx of asthma -pt denies chest pain, SOB, fatigue, or needing to use rescue inhaler -Albuterol prn for SOB/wheezing Dispo:med/tele VTE ppx: low risk, ambulation diet: regular Code: full code Admission and Anticipated Discharge Date Admission Date: December 05, 2024 Supervising Physician Co-Signing Physician Notes Attending Physician Supervision Note: I independently interviewed and examined the patient and verified the cummins history and physical, reviewed labs and image studies and agree with findings and care plan noted above. Pain in genital rash continues - 05/22 - pain meds helping some. No abdominal pain. vitals noted nad heent nc at mmm breathing unlabored no accessory muscles good effort skin no rashes no pallor or icterus neuro no focal deficits. Tylenol overdose - unintentional Transaminitis - -Continue NAC protocol per poison control. -LFT/INR trending down. Continue to follow. -Hepatitis profile neg. Other viral panel pending. HSV I from [facility] labs positive. Autoimmune labs pending. 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 -Per Pugger Helper recommendation - start oral acyclovir 400mgs TID. -topical steroids. Preg test ordered per request. Subjective Patient seen bedside this morning. Patient not having any abdominal pain or discomfort though still having significant pain with her vaginal lesions. Patient has been trying to use the creams though they have only slightly improved the pain. Patient reiterates that her Tylenol ingestion was due to pain and she was not having any suicidal thoughts or ideation. Review of Systems Review of Systems: All systems reviewed & are unremarkable except as noted in Subjective Physical Exam Constitutional: WD/WN, vitals as above Eyes: PERRL, conjunctivae normal, anicteric sclerae Respiratory: normal respiratory effort, lungs clear to auscultation Cardiovascular: RRR, no murmur, no edema Gastrointestinal (Abdomen): normal bowel sounds, soft, nontender, no hepatosplenomegaly Results & Data Results & Data Vital Signs (Past 12 Hours) Vital Signs Temp Pulse Pulse Resp BP BP Pulse Ox 12/08/24 04:16 36.9 C 64 20 109/55 L 98 12/08/24 00:10 36.6 C 58 L 20 95/61 L 97 12/07/24 22:04 63 12/07/24 20:19 57 L 92/56 L 12/07/24 19:59 36.5 C 84 20 76/58 L 95 O2 Del Method 12/08/24 04:16 Room Air 12/08/24 00:10 Room Air 12/07/24 22:04 12/07/24 20:19 12/07/24 19:59 Room Air (1) Unintentional Tylenol overdose Encounter type: initial encounter Qualified Code(s): T39.1X1A - Poisoning by 4-Aminophenol derivatives, accidental (unintentional), initial encounter (3) Chest pain Chest pain type: unspecified Qualified Code(s): R07.9 - Chest pain, unspecified (4) Abdominal pain Abdominal location: unspecified location Qualified Code(s): R10.9 - Unspecified abdominal pain
[2024-12-08 07:47] LABS: Hematocrit (blood only) 36.8 % (37.0-47.0); Mean Corpuscular Hemoglobin 27.2 pg (25.0-34.0); Mean Corpuscular Hgb Conc 32.6 g/dL (32.0-36.0); Mean Corpuscular Volume 83.4 fL (80.0-100.0); Platelet Count 222 K/uL (130-400); RDW Coefficient of Variation 12.9 % (11.5-14.5); RDW Standard Deviation 39.2 fL (36.4-46.3); Red Blood Count 4.41 M/uL (4.20-5.40); White Blood Count 3.25 K/ul (4.8-10.8)
[2024-12-08 08:08] LABS: Anion Gap 5 (3-11); BUN Creatinine Ratio 5.9 (10-20); Blood Urea Nitrogen 4 mg/dl (6-23); Calcium 8.8 mg/dl (8.6-10.3); Carbon Dioxide 28 mmol/L (21-32); Chloride 106 mmol/L (98-107); Creatinine Clr Calc Pharmacy 118.3 ml/min; Glucose 82 mg/dl (70-99(Fasting)); Potassium 4.2 mmol/L (3.5-5.1); Sodium 139 mmol/L (136-145)
[2024-12-08 08:12] LABS: INR 1.1 (0.9-1.1); Prothrombin Time 11.4 Seconds (9.0-12.0)
[2024-12-08 08:26] LABS: Alanine Aminotransferase > 2500 U/L (7-52); Albumin Globulin Ratio 1.6 (0.9-2); Albumin Level 3.6 gm/dl (3.4-5.0); Alkaline Phosphatase 101 U/L (34-104); Aspartate Aminotransferase 865 U/L (13-39); Bilirubin,Total 0.5 mg/dl (0.2-1.0); Globulin 2.2 gm/dl (2.5-4.0); Phosphorus 3.2 mg/dl (2.5-4.9); Total Protein 5.8 gm/dl (6.0-8.3)
[2024-12-08 08:43] LABS: Basophils # (auto) 0.02 K/uL (0.00-0.20); Basophils % (auto) 0.6 %; Eosinophils # (auto) 0.32 K/uL (0.00-0.50); Eosinophils % (auto) 9.8 %; Immature Granulocytes # (auto) 0.03 K/uL (0.01-0.20); Immature Granulocytes % (auto) 0.9 %; Lymphocytes # (auto) 1.77 K/uL (1.20-3.40); Lymphocytes % (auto) 54.5 %; Monocytes # (auto) 0.39 K/uL (0.11-0.59); Neutrophils # (auto) 0.72 K/uL (1.40-6.50); Neutrophils % (auto) 22.2 %
--- NOTE | 2024-12-08 09:20 | Gynecologic Progress Note ---
Date of Service December 08, 2024 Assessment & Plan (1) HSV (herpes simplex virus) infection: Plan: In review of the drug monographs for acyclovir and valacyclovir, would advise against use of valacyclovir as it is metabolized through the liver. Acyclovir is converted by viral and cellular enzymes, with excretion in urine. While clinically her LFTs eunice after administration of IV acyclovir, it may be reasonable to try an oral dose. Could consider a 200 mg tablet, recheck LFTs, then advance to the routine dose of 400 mg tablet, with the goal of advancing to 400 mg 3 times daily for 5 days. Although acyclovir is most effective when started within 1 to 2 days of outbreak, if she is able to tolerate this, it may help to heal her lesions faster. For comfort, given she is noting clinical improvement with the lidocaine plus acyclovir cream, I think this should continue. Offered her a PeriCare bottle, similar to those used by women, may make urination easier, as the water will dilute the urine and reduce discomfort. If she is really struggling to urinate, could consider Quinn catheter, but since she states she is urinating much better today would not pursue a Quinn unless absolutely necessary. Advised that she see LENS EDGE GRINDER MACHINE outpatient once she is discharged, to help create a plan to reduce likelihood of future outbreaks for her. She might wish to start on suppressive therapy. I messaged [employer]ACHINE office staff to get in touch with patient to set up this appointment after discharge. Admission and Anticipated Discharge Date Admission Date: December 05, 2024 Subjective 19-year-old female [facility] student admitted 12/05/2024 with acute transaminitis. Initially presented to emergency department 12/04/24 for accidental Tylenol overdose, returned later same day with abdominal pain and chest pain. She was admitted to hospitalist service, with surgical consultation for cholecystitis-plan for follow-up outpatient, GI consultation for transaminitis- requested cautionary transfer to [facility] however she did not meet transfer criteria. Treated with N-acetylcysteine. L[employer]GE GRINDER MACHINE consulted 12/07/2024 due to HSV infection. Patient had outbreak of genital HSV, has had this in the past, tried to treat with multiple tablets of Tylenol at home. She received 2 doses of IV acyclovir, however her LFTs became elevated further, therefore it was stopped. She has been struggling with genital pain, at times making it difficult to urinate when the urine comes into contact with the genital lesions. This mor viridiana, she states this has significantly improved with a combination of topical lidocaine and topical acyclovir cream. She feels like she is doing better overall this morning. Physical Exam Physical Exam: Awake, in bed, able to answer questions appropriately. Given that she underwent genital exam yesterday, this was not repeated today. Results & Data Vital Signs (Past 12 Hours) Vital Signs Temp Pulse Pulse Resp BP Pulse Ox O2 Del Method 12/08/24 07:07 66 12/08/24 07:02 36.7 C 75 14 99/63 L 98 Room Air 12/08/24 04:16 36.9 C 64 20 109/55 L 98 Room Air 12/08/24 00:10 36.6 C 58 L 20 95/61 L 97 Room Air 12/07/24 22:04 63
[2024-12-08] MEDS ORDERED: STAT IV/IM STA (09:59)
[2024-12-08] MEDS ORDERED: AcetylCYSTEINE IV 21 HR REGIMEN (>40KG) IV STA (09:59)
[2024-12-08] MEDS: HYDROmorphone INJ 0.5 MG/0.5 ML SYR IV STA (10:13)
[2024-12-08] MEDS: ACYCLOVIR 200 MG CAP PO ONE (10:26)
[2024-12-08 10:31] LABS: Anion Gap 4 (3-11); BUN Creatinine Ratio 7.5 (10-20); Blood Urea Nitrogen 5 mg/dl (6-23); Calcium 8.9 mg/dl (8.6-10.3); Carbon Dioxide 28 mmol/L (21-32); Chloride 106 mmol/L (98-107); Creatinine Clr Calc Pharmacy 120.1 ml/min; Glucose 131 mg/dl (70-99(Fasting)); Potassium 3.8 mmol/L (3.5-5.1); Sodium 138 mmol/L (136-145)
[2024-12-08 10:43] LABS: INR 1.1 (0.9-1.1); Prothrombin Time 11.6 Seconds (9.0-12.0)
[2024-12-08 10:48] LABS: Alanine Aminotransferase > 2500 U/L (7-52); Albumin Globulin Ratio 1.6 (0.9-2); Albumin Level 3.6 gm/dl (3.4-5.0); Alkaline Phosphatase 99 U/L (34-104); Aspartate Aminotransferase 787 U/L (13-39); Bilirubin,Total 0.5 mg/dl (0.2-1.0); Globulin 2.3 gm/dl (2.5-4.0); Phosphorus 2.3 mg/dl (2.5-4.9); Total Protein 5.9 gm/dl (6.0-8.3)
[2024-12-08] MEDS: ACETYLCYSTEINE IV ONE (10:56)
[2024-12-08] MEDS: DEXTROSE 5% IV ONE (10:56)
[2024-12-08] MEDS ORDERED: DEXTROSE 5% IV ONE (10:59)
[2024-12-08] MEDS ORDERED: ACETYLCYSTEINE IV ONE (10:59)
[2024-12-08 16:48] LABS: CMV DNA Qnt Real Time PCR Not Detected; CMV DNA Quant PCR Not Detected log IU/mL
[2024-12-08 17:02] LABS: Anion Gap 5 (3-11); Blood Urea Nitrogen 4 mg/dl (6-23); Calcium 8.3 mg/dl (8.6-10.3); Carbon Dioxide 29 mmol/L (21-32); Chloride 104 mmol/L (98-107); Creatinine Clr Calc Pharmacy 120.1 ml/min; Glucose 100 mg/dl (70-99(Fasting)); Potassium 3.9 mmol/L (3.5-5.1); Sodium 138 mmol/L (136-145)
[2024-12-08] MEDS: HYDROmorphone INJ 0.5 MG/0.5 ML SYR IV PRN (17:06)
[2024-12-08 17:12] LABS: INR 1.1 (0.9-1.1); Prothrombin Time 11.5 Seconds (9.0-12.0)
[2024-12-08 17:19] LABS: Alanine Aminotransferase > 2500 U/L (7-52); Albumin Globulin Ratio 1.6 (0.9-2); Albumin Level 3.6 gm/dl (3.4-5.0); Alkaline Phosphatase 98 U/L (34-104); Aspartate Aminotransferase 581 U/L (13-39); Bilirubin,Total 0.4 mg/dl (0.2-1.0); Globulin 2.2 gm/dl (2.5-4.0); Phosphorus 3.5 mg/dl (2.5-4.9); Total Protein 5.8 gm/dl (6.0-8.3)
[2024-12-08 18:40] LABS: Pregnancy Test, Urine Negative (Negative)
[2024-12-08] MEDS: ACYCLOVIR 400 MG TAB PO SCH (20:05)
[2024-12-08 22:57] LABS: BUN Creatinine Ratio 5.9 (10-20); Calcium 8.6 mg/dl (8.6-10.3); Creatinine Clr Calc Pharmacy 118.3 ml/min; Potassium 4.1 mmol/L (3.5-5.1)
[2024-12-08 23:10] LABS: Albumin Globulin Ratio 1.7 (0.9-2); Albumin Level 3.6 gm/dl (3.4-5.0); Bilirubin,Total 0.4 mg/dl (0.2-1.0); Globulin 2.1 gm/dl (2.5-4.0); Phosphorus 3.1 mg/dl (2.5-4.9); Total Protein 5.7 gm/dl (6.0-8.3)
[2024-12-08 23:19] LABS: INR 1.1 (0.9-1.1); Prothrombin Time 11.7 Seconds (9.0-12.0)
[2024-12-09] MEDS: SODIUM CHLORIDE 0.9% 500 ML IV ONE (00:11)
[2024-12-09] MEDS: SODIUM CHLORIDE 0.9% 1,000 ML IV SCH (01:01)
[2024-12-09 07:03] LABS: Hematocrit (blood only) 34.3 % (37.0-47.0); Hemoglobin 11.2 g/dl (12.0-16.0); Mean Corpuscular Hemoglobin 27.6 pg (25.0-34.0); Mean Corpuscular Hgb Conc 32.7 g/dL (32.0-36.0); Mean Corpuscular Volume 84.5 fL (80.0-100.0); Platelet Count 226 K/uL (130-400); RDW Coefficient of Variation 12.7 % (11.5-14.5); RDW Standard Deviation 39.4 fL (36.4-46.3); Red Blood Count 4.06 M/uL (4.20-5.40); White Blood Count 4.58 K/ul (4.8-10.8)
[2024-12-09 07:28] LABS: BUN Creatinine Ratio 4.7 (10-20); Calcium 8.8 mg/dl (8.6-10.3); Creatinine Clr Calc Pharmacy 125.2 ml/min; Potassium 3.8 mmol/L (3.5-5.1)
[2024-12-09 07:36] LABS: Albumin Globulin Ratio 1.6 (0.9-2); Albumin Level 3.5 gm/dl (3.4-5.0); Bilirubin,Total 0.3 mg/dl (0.2-1.0); Globulin 2.2 gm/dl (2.5-4.0); Phosphorus 3.7 mg/dl (2.5-4.9); Total Protein 5.7 gm/dl (6.0-8.3)
[2024-12-09 07:50] LABS: Basophils # (auto) 0.03 K/uL (0.00-0.20); Basophils % (auto) 0.7 %; Eosinophils # (auto) 0.34 K/uL (0.00-0.50); Eosinophils % (auto) 7.4 %; Immature Granulocytes # (auto) 0.04 K/uL (0.01-0.20); Immature Granulocytes % (auto) 0.9 %; Lymphocytes # (auto) 2.24 K/uL (1.20-3.40); Lymphocytes % (auto) 48.9 %; Monocytes # (auto) 0.48 K/uL (0.11-0.59); Monocytes % (auto) 10.5 %; Neutrophils # (auto) 1.45 K/uL (1.40-6.50); Neutrophils % (auto) 31.6 %
--- NOTE | 2024-12-09 07:51 | Gynecologic Progress Note ---
Date of Service December 09, 2024 Assessment & Plan (1) HSV (herpes simplex virus) infection: Plan: Symptoms improving slowly. She is agreeable to outpatient followup for long-term management - message already sent to office SOCIAL CONTACT WORKER to set up appointment. Admission and Anticipated Discharge Date Admission Date: December 05, 2024 Subjective Rounds this morning - pt is reporting a mild improvement in genital symptoms, is able to urinate a bit better. Physical Exam Physical Exam: Awake, talking. Results & Data Vital Signs (Past 12 Hours) Vital Signs Temp Pulse Pulse Resp BP Pulse Ox O2 Del Method 12/09/24 07:17 74 12/09/24 04:09 36.5 C 63 20 89/59 L 95 Room Air 12/09/24 00:50 90/52 L 12/09/24 00:05 69/35 L 12/09/24 00:00 36.5 C 57 L 20 78/46 L 99 Room Air 12/08/24 21:58 62 12/08/24 20:04 36.6 C 68 20 95/65 L 99 Room Air
--- NOTE | 2024-12-09 07:56 | Med Student Discharge Summary ---
Date of Service December 09, 2024 Admission HPI Per Admitting Provider Noni is a 19-year-old female with past medical history of childhood asthma recently diagnosed UTI, yeast infection, and HSV1 infections who came to the ED on 12/05/24 with chest pain and abdominal pain after taking 10-12 tylenol tablets in the setting of pelvic/urinary discomfort. She was seen earlier in the ED on the same day for similar sx and for concern for tylenol overdose, however, after ED physician spoke with poison control who stated patient did not to be treated due to time frame and lab values at the time. As the day went on, patient began experiencing more and more chest pain and abdominal pain and therefore returned to ED due to concern this was related to tylenol overdose. Patient states she did not intent to overdose on tylenol, and that she was taking 2 tabs every 5 minutes until she reached 10-12 tabs due to chest pain and abdominal pain. NAC protocol initiated as per poison control. Denies history of suicidal thoughts or thoughts of self harm. When asked to describe her chest armstrong, she states it is constant and could reach significant levels of intensity but cannot think of a particular trigger. Her abdominal pain is more marked on the epigastric and suprapubic region, but she states she can feel it more generalized at time. Associated sxs include nausea without vomiting, but no fevers/chills, weakness, bowel movement changes, or any other sxs. ED Course: Discussed with poison control and acetylcysteine started, 500 mL IVF given Labs/Imaging: -CT abd/pelv: suggesting possible acute cholecystitis -RUQ u/s: gallbladder edema 2/2 liver injury -CBC w/o leukocytosis and hgb of 13.8 and plt of 228. -CMP w/ hypokalemia of 2.8 but no other significant electrolytes abnormalities and renal markers in good range. -Bsg elevated at 191. -acetaminophen level: peaked at 75, resolved -LFTs: AST peaked in 8000s with downtrend into 200s upon d/c, ALT peaked >2500 with downtrend into 1900's upon d/c, alk phos normal. -PT/INR peaked 16.7/1.6, both resolved upon d/c Admission Exam (Per Admitting) Constitutional comfortable GENERAL: AAOx4, afebrile, non-toxic, NAD HEAD: AT, NC EYES: EOM intact, RODRIGO THROAT: normal to visual inspection CHEST: pain with palpation of right-sided chest wall, no pain w/ palpation of sternal region or left-sided chest wall; symmetric chest expansions with respirations CARDIO: RRR, no r/m/g PULMONARY: CTA b/l, normal respiratory effort, no respiratory distress GI: pain with palpation of epigastric region, nondistended EXTREMITIES: no swelling or calf tenderness in b/l LE Respiratory normal respiratory effort, lungs clear to auscultation Cardiovascular RRR, no murmur, no edema Discharge Exam Constitutional comfortable Respiratory normal respiratory effort, lungs clear to auscultation Cardiovascular RRR, no murmur, no edema Gastrointestinal (Abdomen) soft abdomen, mild tenderness to palpation RUQ, no hepatosplenomegaly Discharge Data Consultations 12/05/24 02:25 Consult General Surgery Routine 12/05/24 08:37 Consult Gastroenterology Stat 12/07/24 06:45 Consult Gynecology Routine Hospital Course (1) Unintentional Tylenol overdose: (2) Acute cholecystitis: (3) Chest pain: (4) Abdominal pain: (5) Dyspepsia: (6) Costochondritis: (7) Asthma: (8) UTI (urinary tract infection): (9) Yeast infection: (10) HSV (herpes simplex virus) infection: (11) Transaminitis: Plan 19yo F with history of childhood asthma and recent diagnoses of UTI, yeast infection, and HSV1 infection who presented with chest pain and abd pain to ED due to accidental tylenol oversdose in setting of pelvic/urinary discomfort. NAC protocol initiated with normalization of tylenol level and upward trending transaminitis/PT/INR. #Unintentional Tylenol Toxicity: #Acute Hepatitis: -s/p 3 bag NAC regimen. poison control rec 16 more hrs of NAC protocol. poison control has signed off -Suspect secondary cause contributing to transaminitis as amount of Acetaminophen ingested equates to ~5-6 grams, only a small amount above daily limit. Repeat Tylenol level returned to normal range (12) while LFTs and PT/INR continued to trend upward (ASTs peaked in 8000s now in 200s, ALT peaked >2500 now in 1000s, PT peaked 16.7 now 11, INR peaked 1.6 now 1) -Outside lab (11/22/24) revealed HSV1 (+), HSV2 (-). negative trich, gonorrhea, chlamydia, HIV. -Hep Bs antigen and Hep C antigen negative -viral hep panel, EBV panel, and CMV Ab titers pending -continue oral acyclovir 400 mg TID for active HSV1 infection -follow up with PCP and continue monitoring CMP, LFTs, PT/INR/ T bili. 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 Traore [facility] as an outpatient #Neutropenia -resolved 12/09 #?acute cholecystitis -CT abd/pel suggesting acute cholecystitis -RUQ u/s suggesting abnormal gallbladder findings 2/2 liver damage -considering reassuring physical exam, normal alk phos, low suspicion for acute cholecystitis -no surgical intervention at this time per surgery #abd pain/dyspepsia #chest pain/costochondritis -reproducible, non radiating pain upper right chest wall, resolving -low suspicion for cardiopulm origin, likely costochondritis -resolved #bronchitis/hx of asthma -pt denies chest pain, SOB, fatigue, or needing to use rescue inhaler -Albuterol prn for SOB/wheezing -resolved Dispo:med/tele VTE ppx: low risk, ambulation diet: regular Code: full code9 Discharge Plan Discharge Items Patient Disposition: Home - Self-Care Reason For Visit: ABDOMINAL PAIN, CHEST PAIN Discharge Diagnosis: acute hepatitis Activity: Resume your previous activity Non-emergency contact: Primary Care Provider and Yoghurt Maker Call non-emergency contact if: you have any medication questions and your symptoms worsen Follow-up/Referrals: [facility] [Primary Care Provider] - Diet: Regular Ambulatory Orders: Comprehensive Metabolic Panel (Routine) Timeframe: 3 Days Location: Determined by Patient Ordered By: Luc Badillo Attending Provider Instructions: You were admitted to the hospital for acute hepatitis secondary to Tylenol ingestion and EpsteinBarr virus. On discharge, you should avoid taking Tylenol. You should use ibuprofen or naproxen as directed. We will order repeat lab work for you to have done after discharge. It is important that you have these labs drawn on 12/12/24 so that they can be reviewed at your follow up appointment. A discharge summary will be sent to your primary care physician to ensure continuity of care. Please bring this discharge summary with you to your next office appointment so that your provider can review it at that time. Follow-up appointments: You have a follow up appointment scheduled on 12/17/24 at 2:45 at [facility]. You will be contacted by the [employer] SPECIALIST office to schedule a follow up appointment. Keep all your follow-up appointments as already scheduled. If you cannot make an appointment, notify your provider. Medications: Your medication list has been reviewed and reconciled upon discharge to ensure accuracy and continuity of care. An updated list of all your medications is included with your hospital discharge paperwork. Please review this list closely, and make note of any changes. We sent a new medication called acyclovir to your pharmacy. Take acyclovir (400mg) one tablet three times daily. We sent a new medication called naproxen to your pharmacy. Take naproxen (500mg) one tablet twice daily as needed for pain. If you have any issues filling these prescriptions, please call [phone] and ask to leave a message for Dr. Luc Cunningham. Take your medications as instructed; do not skip a dose of your medicines. Make sure all of your doctors know every medicine you are taking (including lajg-kbh-gkyunwp medicines, vitamins, and supplements). Call your primary care provider before taking any new medicines (including atxp-hgo-ajqpyxo medicines, vitamins, and supplements), because some of these may interact with your current medications, or may make your symptoms worse. Tell your primary care provider if you cannot afford your medications. CONTACT YOUR PRIMARY CARE PROVIDER if you experience any of the following: Difficulty following your treatment plan, or difficulty taking medications CALL 911 OR GO TO THE EMERGENCY DEPARTMENT if you experience any of the following: Sudden, severe abdominal pain or nausea/vomiting Severe chest pain, or chest pain that radiates (moves) to your jaw or arm Sudden, severe shortness of breath or difficulty breathing Thank you for allowing us to participate in your care. Pending Studies at Discharge: No Stand-Alone Forms: My Way[employer], Smoking Cessation Medications and DC Order Prescriptions: New acyclovir 400 mg Tablet 400 mg PO TID Qty: 90 0RF naproxen sodium 550 mg tablet 550 mg PO Q12H PRN (Reason: pain) Qty: 30 0RF No Action No Known Home Medications Discharge Orders: Discharge Order (Routine); Ordered 12/09/24 Ordered By: Luc Cunningham Admission Data Admit Date/Time: 12/05/24 00:51 Attending Provider: Parveen Sadler Admit Provider: Shweta Mcclain Primary Care Provider: [facility] Other Providers: Nay Rajan; Tarun Ortega; Douglas Serrano; Salima Holt; Renetta Avila; Marichuy Quintero; Mady Echeverria; Jolanta Montenegro; Ravindra Cameron; Corrine Traore; Siria Jeronimo; Iris Quijano; Joby Malcolm; Judie Dick Other Interventions: Discharge Summary Assessment (RN) Last Done: 12/09/24 17:16 Supervising Attestation I personally examined the patient and verified all cummins points of history and exam, discussed case, and agree with decision making with Dr Cunningham and Karine Britt MS4 feeling better feels up to going home. No other new complaints. Vitals noted, in general she is awake and alert pleasant no distress. HEENT normocephalic atraumatic mucous membranes moist. Breathing unlabored no accessory muscle use good effort. Skin without rashes pallor or icterus. Labs noted. Transaminitissuspect multifactorial with drug-induced liver injury from Tylenol superimposed on viral illness, all improving. Fortunately INR came down and bilirubin never rosesafe/stable for home. Discussed not taking any medications without running it past PCP first (and we are establishing her with a PCP locally), while I suspect her iron studies are phase reactants, would like to repeat them in about a month to ensure this is the case. Otherwise as above
--- NOTE | 2024-12-09 08:45 | Gastroenterology Progress Note ---
Date of Service December 09, 2024 Assessment & Plan (1) Transaminitis: Plan: 19 year old female admitted for HSV infection, unintentional Tylenol overdose and with elevated transaminases and INR. Attempted to transfer to [facility] who had recommended to continue NAC and continue care locally unless INR > 2 She has completed NAC therapy directed by poison control. Over the weekend her transaminases and coagulopathy began to improve w/ Tbili 0.3, AST 286, ALT 194 4, ALKP 85 w/ INR 1.0 - Trend LFTs - Trend INR - Follow liver serology - Management of HSV per primary service/digital developer I spent a total of 40 minutes on the date of service in review of patient's record, and previously obtained information in person and appropriate medical visit, discussion and education of plan, with patient and/or caregiver, placing orders for tests/referral/procedures as medically necessary and documentation of pertinent clinical information in patient's medical records for their visit today. Admission and Anticipated Discharge Date Admission Date: December 05, 2024 Supervising Physician Co-Signing Physician Notes I personally saw and examined the patient. I have reviewed the chart and agree with the documentation provided by the [employer]ENT including discussion about the assessment, treatment and plan. Briefly, doing much better with no encephalopathy and LFTs coming down nicely. INR is normalized. I think this is drug-induced liver injury secondary to Tylenol. Supportive care. Her liver function should come back to normal in 2 to 3 months. CMP and viral hepatitis serologies are negative. We still need ASMA and AMA given her severe hepatitis, but suspect this is drug-induced liver injury. Subjective Pt was seen and evaluated, chart reviewed. Was sleeping on my arrival to her room, awoke to name. Denies any abd pain, nausea/vomiting. Tolerating PO intake well. No fever, chills, CP, SOB. Tbili 0.4 --> 0.6 --> 0.9 --> 0.7 --> 0.3 AST 15 --> 215 --> 891 -> 503 --> 2922 --> 286 ALT 10 --> 193 --> 857 --> 798 --> 2428 --> 1944 ALKP 59 --> 67 -->63 --> 55 --> 85 PLT 228 MA/INR 1.1 --> 1.5 --> 1.6 --> 1 Acute hep negative CMV negative Review of Systems Review of Systems: All other findings negative except as noted in HPI. Physical Exam Constitutional: WD/WN, vitals as above Respiratory: normal respiratory effort Cardiovascular: Rate/Rhythm: regular rate and regular rhythm Gastrointestinal (Abdomen): normal bowel sounds, soft, nontender, no hepatosplenomegaly Skin: no rashes, warm and dry Results & Data Results & Data Vital Signs (Past 12 Hours) Vital Signs Temp Pulse Pulse Resp BP Pulse Ox O2 Del Method 12/09/24 07:45 97.7 F 51 L 18 86/49 L 97 Room Air 12/09/24 07:17 74 12/09/24 04:09 97.7 F 63 20 89/59 L 95 Room Air 12/09/24 00:50 90/52 L 12/09/24 00:05 69/35 L 12/09/24 00:00 97.7 F 57 L 20 78/46 L 99 Room Air 12/08/24 21:58 62 Laboratory Results 12/09/24 12/08/24 12/08/24 Range/Units 06:43 22:23 18:21 WBC 4.58 L (4.8-10.8) K/ul RBC 4.06 L (4.20-5.40) M/uL Hgb 11.2 L (12.0-16.0) g/dl Hct 34.3 L (37.0-47.0) % MCV 84.5 (80.0-100.0) fL MCH 27.6 (25.0-34.0) pg MCHC 32.7 (32.0-36.0) g/dL RDW Std Deviation 39.4 (36.4-46.3) fL RDW Coeff of Debbie 12.7 (11.5-14.5) % Plt Count 226 (130-400) K/uL MPV 11.0 (9.4-12.4) fL Immature Gran % (Auto) 0.9 % Neut % (Auto) 31.6 % Lymph % (Auto) 48.9 % [place] % (Auto) 10.5 % Eos % (Auto) 7.4 % Baso % (Auto) 0.7 % Neut # (Auto) 1.45 (1.40-6.50) K/uL Lymph # (Auto) 2.24 (1.20-3.40) K/uL [place] # (Auto) 0.48 (0.11-0.59) K/uL Eos # (Auto) 0.34 (0.00-0.50) K/uL Baso # (Auto) 0.03 (0.00-0.20) K/uL Immature Gran # (Auto) 0.04 (0.01-0.20) K/uL PT 11.0 11.7 (9.0-12.0) Seconds INR 1.0 1.1 (0.9-1.1) Sodium 140 137 (136-145) mmol/L Potassium 3.8 4.1 (3.5-5.1) mmol/L Chloride 108 H 104 (98-107) mmol/L Carbon Dioxide 27 29 (21-32) mmol/L Anion Gap 5 4 (3-11) BUN 3 L 4 L (6-23) mg/dl Creatinine 0.64 0.68 (0.6-1.2) mg/dl Est Cr Clr Drug Dosing 125.2 118.3 ml/min eGFR 129.67 127.79 BUN/Creatinine Ratio 4.7 L 5.9 L (10-20) Glucose 91 114 H (70-99(Fasting)) mg/dl Calcium 8.8 8.6 (8.6-10.3) mg/dl Phosphorus 3.7 3.1 (2.5-4.9) mg/dl Total Bilirubin 0.3 0.4 (0.2-1.0) mg/dl AST 286 H 426 H (13-39) U/L ALT 1944 H 2360 H (7-52) U/L Alkaline Phosphatase 85 96 (34-104) U/L Total Protein 5.7 L 5.7 L (6.0-8.3) gm/dl Albumin 3.5 3.6 (3.4-5.0) gm/dl Globulin 2.2 L 2.1 L (2.5-4.0) gm/dl Albumin/Globulin Ratio 1.6 1.7 (0.9-2) Urine Test Negative (Negative) CMV Specimen Source CMV Qnt PCR IU/mL IU/mL CMV Qnt PCR log IU/mL log IU/mL 12/08/24 12/08/24 12/08/24 Range/Units 16:09 09:53 07:15 WBC 3.25 L (4.8-10.8) K/ul RBC 4.41 (4.20-5.40) M/uL Hgb 12.0 (12.0-16.0) g/dl Hct 36.8 L (37.0-47.0) % MCV 83.4 (80.0-100.0) fL MCH 27.2 (25.0-34.0) pg MCHC 32.6 (32.0-36.0) g/dL RDW Std Deviation 39.2 (36.4-46.3) fL RDW Coeff of Debbie 12.9 (11.5-14.5) % Plt Count 222 (130-400) K/uL MPV 11.0 (9.4-12.4) fL Immature Gran % (Auto) 0.9 % Neut % (Auto) 22.2 % Lymph % (Auto) 54.5 % [place] % (Auto) 12.0 % Eos % (Auto) 9.8 % Baso % (Auto) 0.6 % Neut # (Auto) 0.72 L* (1.40-6.50) K/uL Lymph # (Auto) 1.77 (1.20-3.40) K/uL [place] # (Auto) 0.39 (0.11-0.59) K/uL Eos # (Auto) 0.32 (0.00-0.50) K/uL Baso # (Auto) 0.02 (0.00-0.20) K/uL Immature Gran # (Auto) 0.03 (0.01-0.20) K/uL PT 11.5 11.6 (9.0-12.0) Seconds INR 1.1 1.1 (0.9-1.1) Sodium 138 138 (136-145) mmol/L Potassium 3.9 3.8 (3.5-5.1) mmol/L Chloride 104 106 (98-107) mmol/L Carbon Dioxide 29 28 (21-32) mmol/L Anion Gap 5 4 (3-11) BUN 4 L 5 L (6-23) mg/dl Creatinine 0.67 0.67 (0.6-1.2) mg/dl Est Cr Clr Drug Dosing 120.1 120.1 ml/min eGFR 128.24 128.24 BUN/Creatinine Ratio 6.0 L 7.5 L (10-20) Glucose 100 H 131 H (70-99(Fasting)) mg/dl Calcium 8.3 L 8.9 (8.6-10.3) mg/dl Phosphorus 3.5 D 2.3 L (2.5-4.9) mg/dl Total Bilirubin 0.4 0.5 (0.2-1.0) mg/dl AST 581 H 787 H (13-39) U/L ALT > 2500 H > 2500 H (7-52) U/L Alkaline Phosphatase 98 99 (34-104) U/L Total Protein 5.8 L 5.9 L (6.0-8.3) gm/dl Albumin 3.6 3.6 (3.4-5.0) gm/dl Globulin 2.2 L 2.3 L (2.5-4.0) gm/dl Albumin/Globulin Ratio 1.6 1.6 (0.9-2) Urine Test (Negative) CMV Specimen Source CMV Qnt PCR IU/mL IU/mL CMV Qnt PCR log IU/mL log IU/mL 12/05/24 Range/Units 18:46 WBC (4.8-10.8) K/ul RBC (4.20-5.40) M/uL Hgb (12.0-16.0) g/dl Hct (37.0-47.0) % MCV (80.0-100.0) fL MCH (25.0-34.0) pg MCHC (32.0-36.0) g/dL RDW Std Deviation (36.4-46.3) fL RDW Coeff of Debbie (11.5-14.5) % Plt Count (130-400) K/uL MPV (9.4-12.4) fL Immature Gran % (Auto) % Neut % (Auto) % Lymph % (Auto) % [place] % (Auto) % Eos % (Auto) % Baso % (Auto) % Neut # (Auto) (1.40-6.50) K/uL Lymph # (Auto) (1.20-3.40) K/uL [place] # (Auto) (0.11-0.59) K/uL Eos # (Auto) (0.00-0.50) K/uL Baso # (Auto) (0.00-0.20) K/uL Immature Gran # (Auto) (0.01-0.20) K/uL PT (9.0-12.0) Seconds INR (0.9-1.1) Sodium (136-145) mmol/L Potassium (3.5-5.1) mmol/L Chloride (98-107) mmol/L Carbon Dioxide (21-32) mmol/L Anion Gap (3-11) BUN (6-23) mg/dl Creatinine (0.6-1.2) mg/dl Est Cr Clr Drug Dosing ml/min eGFR BUN/Creatinine Ratio (10-20) Glucose (70-99(Fasting)) mg/dl Calcium (8.6-10.3) mg/dl Phosphorus (2.5-4.9) mg/dl Total Bilirubin (0.2-1.0) mg/dl AST (13-39) U/L ALT (7-52) U/L Alkaline Phosphatase (34-104) U/L Total Protein (6.0-8.3) gm/dl Albumin (3.4-5.0) gm/dl Globulin (2.5-4.0) gm/dl Albumin/Globulin Ratio (0.9-2) Urine Test (Negative) CMV Specimen Source Whole Blood CMV Qnt PCR IU/mL Not Detected IU/mL CMV Qnt PCR log IU/mL Not Detected log IU/mL PG Care Time/CCT Total # of Minutes Spent Total Time Spent with Patient: Total time spent is greater than 50% in coordination of care (as documented) at patient's floor/unit and/or counseling patient: Coding Level of Care Code 32900 SUB INP/OBS CARE 2/35MIN Diagnoses Transaminitis R74.01
[2024-12-09 14:32] LABS: CMV IgG Antibody <0.60 U/mL; CMV IgM Antibody <30.00 AU/mL; HSV Type 1 DNA Not Detected (Not Detected); HSV Type 1&2 DNA Source Whole Blood; HSV Type 2 DNA Not Detected (Not Detected)
[2024-12-09 15:12] LABS: Hematocrit (blood only) 36.1 % (37.0-47.0); Hemoglobin 11.9 g/dl (12.0-16.0); Mean Corpuscular Hemoglobin 27.5 pg (25.0-34.0); Mean Corpuscular Volume 83.6 fL (80.0-100.0); Mean Platelet Volume 10.7 fL (9.4-12.4); Platelet Count 241 K/uL (130-400); RDW Coefficient of Variation 12.9 % (11.5-14.5); RDW Standard Deviation 39.8 fL (36.4-46.3); Red Blood Count 4.32 M/uL (4.20-5.40)
[2024-12-09 15:28] LABS: BUN Creatinine Ratio 4.5 (10-20); Calcium 8.6 mg/dl (8.6-10.3); Creatinine Clr Calc Pharmacy 119.6 ml/min; Potassium 4.2 mmol/L (3.5-5.1)
[2024-12-09 15:38] LABS: Prothrombin Time 10.9 Seconds (9.0-12.0)
[2024-12-09 15:39] VITALS: PULSE 63; RESP 17; TEMP 97.5; O2SAT 98
[2024-12-09 15:43] LABS: Albumin Globulin Ratio 1.6 (0.9-2); Albumin Level 3.6 gm/dl (3.4-5.0); Bilirubin,Total 0.4 mg/dl (0.2-1.0); Globulin 2.2 gm/dl (2.5-4.0); Total Protein 5.8 gm/dl (6.0-8.3)
[2024-12-09 17:05] VITALS: BP 97/65
--- NOTE | 2024-12-09 17:55 | Billing Data ---
Date of Service December 09, 2024 Coding Level of Care Code 26092 IN/OBS DISCH 30 MIN/LESS
[2024-12-10 07:23] LABS: Alpha 1 Antitrypsin 164 mg/dL (83-199); Anti Mitochondrial Antibody NEGATIVE (NEGATIVE); Anti Nuclear Antibody Screen POSITIVE (NEGATIVE); Ceruloplasmin 23 mg/dL (14-48); Copper, Serum 98 mcg/dL (70-175); Parvovirus IgG 0.1 (<0.9); Parvovirus IgM 0.2 (<0.9); Smooth Muscle Antibody NEGATIVE (NEGATIVE); Transglutaminase, Tissue IgA <1.0 U/mL
[2024-12-10 09:39] LABS: ANA Pattern Nuclear, Speckled; ANA Titer 1:40 titer
== END 2024-12-09 18:11 | disposition home or self-care (01) | DRG 917 ==
LOC: ED 19:17 → SUATTDRO 12-05 00:51 → EDINP 12-05 00:51 → 2N 12-05 02:26